=== PATIENT | male | born 1965 | race Caucasian/White ===

== ENCOUNTER 2022-06-19 13:36 | Inpatient (IN) | payer MEDICAID, SELFPAY ==
[2022-06-19] VITALS (7 sets, daily range): BP systolic 108–148; BP diastolic 70–92; PULSE 81–96; RESP 14–18; TEMP 36.4–36.7; O2SAT 96–97; BMI 24.3
--- NOTE | 2022-06-19 14:12 | XRR_ITS ---
PROCEDURE INFORMATION: Exam: XR Right Foot Exam date and time: 06/19/2022 2:39 PM Age: 57 years old Clinical indication: Swelling, leg or foot; Additional info: Wound in between R 1 and 2 toes, soft tissue film rule out foreign body in between first and TECHNIQUE: Imaging protocol: Radiologic exam of the Right foot. Views: 3 or more views. COMPARISON: No relevant prior studies available. FINDINGS: Bones/joints: Osseous structures are intact. Negative for fracture. Joint spaces of the foot are preserved. DJD with marginal osteophyte formation seen at the tibiotalar joint space. Soft tissues: No evidence of radiopaque foreign body. XR/XR foot RT min 3V* [id number] IMPRESSION: No evidence of radiopaque foreign body.
--- NOTE | 2022-06-19 14:15 | W.ED.EXTPRO ---
HPI - Extremity Problem General: Chief complaint: Extremity Injury, Lower Stated complaint: right foot injury Time Seen by Provider: 06/19/22 14:01 Source: patient Mode of arrival: ambulatory Limitations: no limitations History of Present Illness: See nursing assessment. Patient with complaints of increasing swelling and redness to right foot. Patient states he shaved the callus off his right foot 3 weeks ago. He states he then stepped on a thorn 1 week ago between the right first and second toes. He has noticed increased swelling since he stepped on a thorn. He is also had purulent discharge in between his right first and second toes. 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 Denies being diabetic. States he had some leftover amoxicillin started at 3 days ago at 500 mg every 6 hours. Takes no other routine medications. Denies any allergies to medications. Patient states swelling and discomfort radiate to right calf. Associated symptoms: Deny chest pain or fever(s) Review of Systems Const: Reports: night sweats; Denies: fever(s) or chills Eyes: Denies: change in vision ENMT: Denies: throat pain Card: Denies: chest pain or palpitations Resp: Denies: dyspnea or wheezing GI: Denies: abdominal pain, nausea or vomiting : Denies: flank pain Musc: Reports: other (Moderate soft tissue swelling to the right foot. Mild discomfort to r calf); Denies: neck pain or back pain Neuro: Reports: other (Patient states he has neuropathy in both feet and cannot feel anything.); Denies: headache(s) Psych: Denies: anxiety Valdo/Lymph: Denies: enlarged lymph nodes PFS ED PFSH: Medical History Arsenic poisoning Peripheral neuropathy Surgical History No significant past surgical history Family History Other Diabetes Social History Smoking and tobacco status: never smoked Alcohol intake: current Alcohol intake frequency: few times a week Substance/Drug Use: never Lives independently: Yes Marital status: Single Current occupational status: previously employed Previous occupational history: Laid off, is supposed to start work again next year. 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 Physical Exam Const: COMMON NORMALS: no acute distress, patient oriented x3, no limitations and well nourished GENERAL APPEARANCE: cooperative HENMT: COMMON NORMALS: normocephalic and atraumatic HEAD & SCALP: normocephalic and atraumatic FACE & SINUS: normal facial exam Eye: COMMON NORMALS: EOMs intact bilaterally Neck/C-Spine: COMMON NORMALS: full ROM, no lymphadenopathy, supple and no meningeal signs GENERAL: Yes normal visual inspection Lymph: LYMPHATIC: no lymphadenopathy noted Chest: COMMONS NORMALS: normal inspection of the chest and normal palpation of entire chest wall CHEST: No Ecchymosis present and No rash Resp: COMMON NORMALS: normal respiratory effort, No retractions and clear to auscultation bilaterally EFFORT & INSPECTION: No respiratory distress AUSCULTATION: clear to auscultation bilaterally Cardio: COMMON NORMALS: regular rate, regular rhythm and Peripheral pulses 2+ throughout JUGULAR VENOUS DISTENTION: no JVD RATE: regular rate RHYTHM: regular rhythm PERIPHERAL PULSES: Peripheral pulses 2+ throughout GI: COMMON NORMALS: Normal to inspection, nondistended, normoactive bowel sounds present and non-tender : COMMON NORMALS: Yes no CVA tenderness BLADDER/KIDNEY EXAM: Yes no CVA tenderness Back/Pelvis: COMMON NORMALS: no CVA tenderness Extremity: COMMON NORMALS: full ROM and capillary refill normal OTHER: Patient has moderate soft tissue swelling to the right foot. Patient has purulent drainage originating from between the right great and second toes. No obvious foreign body palpated. Patient has normal posterior tibial and dorsalis pedis pulses. Cap refill normal. Patient has mild ecchymosis of the right great toe. Mild increased warmth of the right foot and mild erythema of the distal half of the right foot. Trace pain in the right calf. No soft tissue swelling to the right lower leg. Neuro: COMMON NORMALS: patient oriented x3, CN's II-XII intact bilaterally and no focal motor deficits MENINGEAL SIGNS: Yes no meningeal signs OTHER: Patient has no sensation of pain to the right foot due to his neuropathy. Motor is intact. Psych: COMMON NORMALS: mental status grossly normal and Normal thought process present THOUGHT PROCESS: Normal thought process present Course Vital Signs: Vital signs: Vital Signs Temperature 97.6 F 06/19/22 13:56 Pulse Rate 96 06/19/22 13:56 Respiratory Rate 14 06/19/22 13:56 Blood Pressure 132/76 06/19/22 15:20 Pulse Oximetry 96 06/19/22 15:20 Oxygen Delivery Me thod 06/19/22 15:20 MDM - Extremity (Nontraumatic) Medical Decision Making Possible retained foreign body. Cellulitis to right foot. Possible abscess to right foot. Possible osteomyelitis. 1530: Case discussed with hospitalist Dr. Genao. He will place patient in observation. He asked that CT scan of the right foot be done. He also asked that lactic acid be added to orders. No abscess by CT scan. Lab Data 06/19/22 14:21 06/19/22 14:21 Radiology Impressions Foot X-Ray 06/19/22 14:12 IMPRESSION: No evidence of radiopaque foreign body. Foot CT 06/19/22 15:31 IMPRESSION: Subcutaneous edema noted at the wound site with no definable abscess or radiopaque foreign body. Laboratory Results WBC 15.3 10^3/uL (4.0-10.0) H 06/19/22 14:21 RBC 5.21 10^6/uL (4.1-5.3) 06/19/22 14:21 Hgb 15.4 g/dL (11.7-16.6) 06/19/22 14:21 Hct 46.2 % (42.0-52.0) 06/19/22 14:21 MCV 88.7 fl (80-94) 06/19/22 14:21 MCH 29.6 pg (28.0-34.0) 06/19/22 14:21 MCHC 33.3 g/dL (30.0-36.0) 06/19/22 14:21 RDW 11.7 % (12.1-15.1) L 06/19/22 14:21 Plt Count 360 10^3/cmm (130-400) 06/19/22 14:21 MPV 9.9 fL (7.4-10.4) 06/19/22 14: Neut % (Auto) 82.2 % 06/19/22 14:21 Lymph % (Auto) 8.6 % 06/19/22 14:21 [place] % (Auto) 8.0 % 06/19/22 14:21 Eos % (Auto) 0.4 % 06/19/22 14:21 Baso % (Auto) 0.3 % 06/19/22 14:21 Neut # (Auto) 12.57 10^3/uL (1.8-7.7) H 06/19/22 14:21 Lymph # (Auto) 1.3 10^3/uL (0.8-4.8) 06/19/22 14:21 [place] # (Auto) 1.2 10^3/uL (0.2-0.9) H 06/19/22 14:21 Eos # (Auto) 0.1 10^3/uL (0.0-0.8) 06/19/22 14:21 Baso # (Auto) 0.0 10^3/uL (0.0-0.1) 06/19/22 14:21 Nucleated RBC % (auto) 0 % 06/19/22 14: Nucleated RBCs # 0.0 /100WBC 06/19/22 14:21 Sodium 130 mmol/L (136-145) L 06/19/22 14:21 Potassium 4.8 mmol/L (3.5-5.1) 06/19/22 14:21 Chloride 89 mmol/L (98-107) L 06/19/22 14:21 Carbon Dioxide 24 mmol/L (22-29) 06/19/22 14:21 Anion Gap 21.8 (5-19) H 06/19/22 14:21 BUN 19 mg/dL (6-20) 06/19/22 14:21 Creatinine 1.0 mg/dL (0.7-1.2) 06/19/22 14:21 GFR Calculation 76.7 mL/min (90-130) L 06/19/22 14:21 Glucose 366 mg/dL (65-115) H 06/19/22 14:21 Estimat Average Glucose 226 06/19/22 14:21 Hemoglobin A1c 9.5 % (4.0-6.0) H 06/19/22 14:21 Calculated Osmolality 287 mOsm/kg (285-295) 06/19/22 14:21 Lactic Acid 2.4 mmol/L (0.5-2.2) H 06/19/22 14:21 Calcium 9.8 mg/dL (8.5-10.5) 06/19/22 14:21 Imaging Data Xray Ortho: My impression: No fracture or foreign body seen. There does appear to be mild degradation of the bone at the proximal end of the proximal phalange, and distal portion of the first metatarsal bone. This could be chronic versus acute osteomyelitis. Radiologist's impression: PROCEDURE INFORMATION: Exam: XR Right Foot Exam date and time: 06/19/2022 2:39 PM Age: 57 years old Clinical indication: Swelling, leg or foot; Additional info: Wound in between R 1 and 2 toes, soft tissue film rule out foreign body in between first and TECHNIQUE: Imaging protocol: Radiologic exam of the Right foot. Views: 3 or more views. COMPARISON: No relevant prior studies available. FINDINGS: Bones/joints: Osseous structures are intact. Negative for fracture. Joint spaces of the foot are preserved. DJD with marginal osteophyte formation seen at the tibiotalar joint space. Soft tissues: No evidence of radiopaque foreign body. XR/XR foot RT min 3V* [id number] IMPRESSION: No evidence of radiopaque foreign body. ? Dictated By: Olu Hurt DO Signed By: Olu Hurt DO Signed Date/Time: 06/19/[address]: Radiologist's impression: PROCEDURE INFORMATION: Exam: CT Right Lower Extremity With Contrast, Foot Exam date and time: 06/19/2022 4:09 PM Age: 57 years old Clinical indication: Injury or trauma; Other: Thorn in his right foot, 1st and 2nd toe infected and pain. Puncture and swelling (edema); Foreign body involvement not specified; Additional info: Infection right foot, rule out abscess TECHNIQUE: Imaging protocol: CT of the Right lower extremity with intravenous contrast was performed. Exam focused on the foot. Radiation optimization: All CT scans at this facility use at least one of these dose optimization techniques: automated exposure control; mA and/or kV adjustment per patient size (includes targeted exams where dose is matched to clinical indication); or iterative reconstruction. Contrast material: OMNI 350; Contrast volume: 100 ml; Contrast route: INTRAVENOUS (IV);? COMPARISON: CR (LOW EXM, ) 06/19/2022 2:39 PM RADIATION DOSE METRICS: Total DLP (mGy-cm): 150.88 FINDINGS: Bones/joints: No acute fracture or dislocation. No irregular osseous erosions. Soft tissues: Subcutaneous edema noted in the 1st and 2nd digits as well as the plantar aspect of the forefoot adjacent to the 1st and 2nd digits. No definable walled-off fluid collection. No subcutaneous emphysema. No radiopaque foreign body. CT/CT foot RT w con [id number] IMPRESSION: Subcutaneous edema noted at the wound site with no definable abscess or radiopaque foreign body. ? Dictated By: Olu Hurt DO Signed By: Olu Hurt DO Signed Date/Time: 06/19/22 1648 Discharge Plan Discharge Patient Disposition: Placed in Observation Admit Provider: Andrew Genao Clinical Impression: Cellulitis of foot, right Type 2 diabetes mellitus Qualifiers: Diabetes mellitus termite control service representative insulin use: without termite control service representative use Diabetes mellitus complication status: with hyperglycemia Qualified Code(s): E11.65 - Type 2 diabetes mellitus with hyperglycemia Coding Level of Care Code ED Dietary Aide Cook for [facility] Fwd History Comprehensive Exam Comprehensive Medical Decision Making Moderate Complexity
[2022-06-19 14:39] LABS: Basophils % 0.3 %; Eosinophils # 0.1 10^3/uL (0.0-0.8); Eosinophils % 0.4 %; Hematocrit 46.2 % (42.0-52.0); Hemoglobin 15.4 g/dL (11.7-16.6); Lymphocytes # 1.3 10^3/uL (0.8-4.8); Lymphocytes % 8.6 %; Mean Corpuscular HGB Conc 33.3 g/dL (30.0-36.0); Mean Corpuscular Hemoglobin 29.6 pg (28.0-34.0); Mean Corpuscular Volume 88.7 fl (80-94); Mean Platelet Volume 9.9 fL (7.4-10.4); Monocytes # 1.2 10^3/uL (0.2-0.9); Neutrophils # 12.57 10^3/uL (1.8-7.7); Neutrophils % 82.2 %; Nucleated Red Blood Cells % 0 %; Platelet Count 360 10^3/cmm (130-400); Red Blood Count 5.21 10^6/uL (4.1-5.3); Red Cell Distribution Width 11.7 % (12.1-15.1); White Blood Count 15.3 10^3/uL (4.0-10.0)
[2022-06-19 14:57] LABS: Anion Gap 21.8 (5-19); Blood Urea Nitrogen 19 mg/dL (6-20); Calcium 9.8 mg/dL (8.5-10.5); Carbon Dioxide 24 mmol/L (22-29); Chloride 89 mmol/L (98-107); Glomerular Filtration Rate 76.7 mL/min (90-130); Glucose 366 mg/dL (65-115); Osmolality Calculated 287 mOsm/kg (285-295); Potassium 4.8 mmol/L (3.5-5.1); Sodium 130 mmol/L (136-145)
[2022-06-19] MEDS: cefTRIAXone 2,000 MG in sodium chloride 0.9% (plus) 50 ML 100 MG IV (14:59)
[2022-06-19] MEDS: vancomycin 1,500 MG/300 ML PIGGYBACK 200 MG IV (15:26)
--- NOTE | 2022-06-19 15:31 | CTR_ITS ---
PROCEDURE INFORMATION: Exam: CT Right Lower Extremity With Contrast, Foot Exam date and time: 06/19/2022 4:09 PM Age: 57 years old Clinical indication: Injury or trauma; Other: Thorn in his right foot, 1st and 2nd toe infected and pain. Puncture and swelling (edema); Foreign body involvement not specified; Additional info: Infection right foot, rule out abscess TECHNIQUE: Imaging protocol: CT of the Right lower extremity with intravenous contrast was performed. Exam focused on the foot. Radiation optimization: All CT scans at this facility use at least one of these dose optimization techniques: automated exposure control; mA and/or kV adjustment per patient size (includes targeted exams where dose is matched to clinical indication); or iterative reconstruction. Contrast material: OMNI 350; Contrast volume: 100 ml; Contrast route: INTRAVENOUS (IV); COMPARISON: CR (LOW EXM, ) 06/19/2022 2:39 PM RADIATION DOSE METRICS: Total DLP (mGy-cm): 150.88 FINDINGS: Bones/joints: No acute fracture or dislocation. No irregular osseous erosions. Soft tissues: Subcutaneous edema noted in the 1st and 2nd digits as well as the plantar aspect of the forefoot adjacent to the 1st and 2nd digits. No definable walled-off fluid collection. No subcutaneous emphysema. No radiopaque foreign body. CT/CT foot RT w con [id number] IMPRESSION: Subcutaneous edema noted at the wound site with no definable abscess or radiopaque foreign body.
[2022-06-19 16:00] LABS: Lactic Sepsis W/Reflex 2.4 mmol/L (0.5-2.2)
--- NOTE | 2022-06-19 16:09 | P.HP_ITS ---
Providers/Chief Complaint Chief Complaint: right foot injury History of Present Illness Pleasant 57-year-old gentleman with history of peripheral neuropathy persistent after arsenic poisoning, developed a callus on the dorsal aspect of his right foot extending from the hallux proximally, which she had shaved off. He then about a week ago stepped on a thorn on proximal plantar/lateral aspect of his right great toe which he removed. Then about 4-5 days ago his toe and then proximal foot started swelling, having redness, and today he also started having bloody drainage. He took amoxicillin that he had had left from the past for 3 days without improvement. The foot is tender. He had night sweats. In ER he is tachycardic 96, afebrile, with leukocytosis 15.3. Lactic acid 2.4. Foot x-ray without fracture, foreign body or advanced bone destruction. Blood glucose is noted 366. Discussed with him he does not have history of diabetes, but states that he does eat quite a bit of sweets, including wart of honey in a week. Review of Systems Const: Reports: night sweats Eyes: Denies: change in vision, eye discomfort or eye redness ENMT: Denies: throat pain, oral sores or ear or mastoid pain Card: Denies: chest pain, edema, pre-syncope or dyspnea on exertion Resp: Denies: dyspnea, productive cough, change in phlegm color or hemoptysis GI: Denies: abdominal pain, nausea, vomiting, diarrhea, constipation, hematochezia or melena : Denies: flank pain, difficulty urinating, urinary frequency or hematuria Musc: Reports: extremity pain and extremity swelling; Denies: back pain, joint swelling or joint redness Skin/Breast: Reports: erythema, new lesions and changing lesions Neuro: Denies: headache(s), numbness in extremities, weakness in extremities, dizziness, confusion or seizure-like activity Endo: Denies: polyuria or polydipsia Valdo/Lymph: Denies: easy bleeding or tender lymph nodes All/Imm: Denies: urticaria or tongue swelling Medications/Allergies Home Medications Medication Instructions Recorded Confirmed Last Taken Type No Known Home Medications 06/19/22 06/19/22 Unknown History Allergies Allergy/AdvReac Type Severity Reaction Status Date / Time No Known Allergies Allergy Verified 06/19/22 13:56 PFSH Acute PFSH: Medical History Arsenic poisoning Peripheral neuropathy Surgical History No significant past surgical history Family History Other Diabetes Social History Smoking and tobacco status: never smoked Alcohol intake: current Alcohol intake frequency: few times a week Substance/Drug Use: never Lives independently: Yes Marital status: Single Current occupational status: previously employed Previous occupational history: Laid off, is supposed to start work again next year. Vitals/I&O/Wt Last Vital Signs Temp 97.6 F 06/19/22 13:56 Pulse 96 06/19/22 13:56 Resp 14 06/19/22 13:56 BP 132/76 06/19/22 15:20 Pulse Ox 96 06/19/22 15:20 O2 Del Method 06/19/22 15:20 06/19/22 06/19/22 06/19/22 06:59 14:59 22:59 Intake Total 50 / 50 Balance 50 / 50 Weight last 48 hrs Weight 72.575 kg Physical Exam Const: COMMON NORMALS: patient oriented x3 and alert GENERAL APPEARANCE: cooperative ORIENTATION/CONSCIOUSNESS: Yes awake HENMT: COMMON NORMALS: oropharynx normal Neck/C-Spine: COMMON NORMALS: no JVD Resp: COMMON NORMALS: normal respiratory effort and clear to auscultation bilaterally AUSCULTATION: clear to auscultation bilaterally Cardio: COMMON NORMALS: no JVD, regular rhythm, S1 normal heart sound present, S2 normal heart sound present and No murmurs present (Cardio) RHYTHM: regular rhythm HEART SOUNDS: S1 normal heart sound present and S2 normal heart sound present GI: COMMON NORMALS: Normal to inspection, nondistended, normoactive bowel sounds present, Soft to palpation and non-tender PALPATION: Yes Soft to palpation Extremity: COMMON NORMALS: no joint enlargement and no pedal edema OTHER: Swelling right hallux, distal medial right foot, with maceration lateral right hallux, between the toes, fissure on plantar surface between first and second toes with some crusted blood, clear drainage currently. Neuro: COMMON NORMALS: patient oriented x3 and moves all extremities SENSORIUM/ORIENTATION: Yes alert Skin: COMMON NORMALS: no rashes or lesions noted GENERAL SKIN EXAM: no rashes or lesions noted Data 06/19/22 14:21 06/19/22 14:21 Micro: Microbiology 06/19/22 14:26 Blood Culture - Preliminary Blood SPECIMEN COLLECTED 06/19/22 14:21 Blood Culture - Preliminary Blood SPECIMEN COLLECTED A&P Assessment and plan (1) Soft tissue infection: Right hallux, proximal fourth, swelling, erythema, maceration, pain, currently clear drainage. No evidence of advanced bone destruction on x-ray. No fracture, no foreign body. He had taken amoxicillin for 3 days at home that he had left from the past, but without any improvement. Wound culture collected. CT fluid to assess for abscess. Cefepime, vancomycin. (2) Sepsis: With leukocytosis 15.3, sinus tachycardia 96. Source is soft tissue infection of right foot. Blood cultures collected. Continue to biotics as above. Lactic acidosis 2.4. No other endorgan dysfunction. (3) Hyperglycemia: Glucose 266. Family history of diabetes. Checking AC. Suspect diabetes. SSI insulin. Consistent carbohydrate diet. (4) Peripheral neuropathy: Chronic peripheral neuropathy after stent placement. Discussed with him to avoid ever walking barefoot. Protect his feet. Avoid soaking. Seek medical attention in case of any wounds. (5) Hyponatremia: Mild. Suspect secondary to sepsis. Reassess sodium. Liberalized sodium intake. Attestations Medical Necessity Statement*: Admission of over 2 midnights anticipated for assessment of management of soft tissue infection, sepsis in gentleman with undiagnosed diabetes, peripheral apathy, worsening symptoms of soft tissue i nfection despite taking amoxicillin. Coding Level of Care Code Acute Interactive Media Director for [facility] Diagnoses Soft tissue infection L08.9 Sepsis A41.9 Hyperglycemia R73.9 Peripheral neuropathy G62.9 Hyponatremia E87.1
[2022-06-19] MEDS: iohexol 350 mg/mL 500 mL Btl (per mL) IV (16:22)
[2022-06-19 16:40] LABS: Estmated Average Glucose 226; Hemoglobin A1C 9.5 % (4.0-6.0)
[2022-06-19 17:28] LABS: Reflex Lactate Order REFLEX LACTIC ORDERD
[2022-06-19 19:20] LABS: Lactic Acid level (Lactate) 1.4 mmol/L (0.5-2.2)
[2022-06-19] MEDS: heparin 5,000 unit/mL INJ 1 mL 5000 UNIT SUBCUT (19:37)
[2022-06-19] MEDS: cefepime 2,000 MG in sodium chloride 0.9% (plus) 50 ML 100 MG IV (19:38)
[2022-06-19] MEDS: acetaminophen 325 mg Tablet 650 MG PO (20:19)
[2022-06-19 20:47] LABS: Glucose Point of Care 343 mg/dL (70-110)
[2022-06-19] MEDS: insulin lispro 100 unit/1 mL SUBCUT (21:00)
[2022-06-20] VITALS (9 sets, daily range): BP systolic 119–152; BP diastolic 68–83; PULSE 76–90; RESP 16–19; TEMP 36.4–36.8; O2SAT 95–97
[2022-06-20] MEDS: vancomycin 1,000 MG in sodium chloride 0.9% 250 ML 250 MG IV ×2 (02:27→14:44)
[2022-06-20] MEDS: heparin 5,000 unit/mL INJ 1 mL 5000 UNIT SUBCUT ×2 (05:46→17:57)
[2022-06-20 06:05] LABS: Basophils # 0.1 10^3/uL (0.0-0.1); Basophils % 0.5 %; Eosinophils # 0.3 10^3/uL (0.0-0.8); Hematocrit 42.4 % (42.0-52.0); Lymphocytes # 1.7 10^3/uL (0.8-4.8); Lymphocytes % 12.8 %; Mean Corpuscular Hemoglobin 29.4 pg (28.0-34.0); Mean Corpuscular Volume 88.9 fl (80-94); Mean Platelet Volume 9.9 fL (7.4-10.4); Monocytes # 1.4 10^3/uL (0.2-0.9); Monocytes % 10.5 %; Neutrophils # 9.73 10^3/uL (1.8-7.7); Neutrophils % 73.5 %; Nucleated Red Blood Cells % 0 %; Platelet Count 306 10^3/cmm (130-400); Red Blood Count 4.77 10^6/uL (4.1-5.3); Red Cell Distribution Width 11.8 % (12.1-15.1); White Blood Count 13.2 10^3/uL (4.0-10.0)
[2022-06-20 06:29] LABS: Anion Gap 12.2 (5-19); Blood Urea Nitrogen 18 mg/dL (6-20); Calcium 9.1 mg/dL (8.5-10.5); Carbon Dioxide 27 mmol/L (22-29); Chloride 96 mmol/L (98-107); Glomerular Filtration Rate 99.3 mL/min (90-130); Glucose 285 mg/dL (65-115); Osmolality Calculated 284 mOsm/kg (285-295); Potassium 4.2 mmol/L (3.5-5.1); Sodium 131 mmol/L (136-145)
[2022-06-20 07:02] LABS: Glucose Point of Care 304 mg/dL (70-110)
[2022-06-20] MEDS: cefepime 2,000 MG in sodium chloride 0.9% (plus) 50 ML 100 MG IV ×2 (09:06→21:09)
[2022-06-20] MEDS: insulin lispro 100 unit/1 mL SUBCUT ×4 (09:06→21:57)
[2022-06-20 11:09] LABS: Glucose Point of Care 324 mg/dL (70-110)
[2022-06-20 17:41] LABS: Glucose Point of Care 266 mg/dL (70-110)
--- NOTE | 2022-06-20 20:54 | P.PN_ITS ---
Subjective Subjective: Today he is doing slightly better. Still swelling, tenderness in the right hallux, distal right foot. No other issues, no chest pain or trouble breathing. No abdominal pain. Vitals/I&O/Wt Last Vital Signs Temp 97.5 F L 06/20/22 20:00 Pulse 81 06/20/22 20:00 Resp 19 H 06/20/22 20:00 BP 152/77 06/20/22 20:00 Pulse Ox 96 06/20/22 20:00 O2 Del Method 06/20/22 20:00 06/20/22 06/20/22 06/20/22 06:59 14:59 22:59 Intake Total 610 / 950 410 / 410 490 / 900 Balance 610 / 950 410 / 410 490 / 900 Weight last 48 hrs Weight 67.903 kg Weight 72.575 kg Physical Exam Const: COMMON NORMALS: patient oriented x3 and alert GENERAL APPEARANCE: cooperative ORIENTATION/CONSCIOUSNESS: Yes awake HENMT: COMMON NORMALS: oropharynx normal Neck/C-Spine: COMMON NORMALS: no JVD Resp: COMMON NORMALS: normal respiratory effort and clear to auscultation bilaterally AUSCULTATION: clear to auscultation bilaterally Cardio: COMMON NORMALS: no JVD, regular rhythm, S1 normal heart sound present, S2 normal heart sound present and No murmurs present (Cardio) RHYTHM: regular rhythm HEART SOUNDS: S1 normal heart sound present and S2 normal heart sound present GI: COMMON NORMALS: Normal to inspection, nondistended, normoactive bowel sounds present, Soft to palpation and non-tender PALPATION: Yes Soft to palpation Extremity: COMMON NORMALS: no joint enlargement and no pedal edema OTHER: Swelling right hallux, distal medial right foot, with maceration lateral right hallux, between the toes, fissure on plantar surface between first and second toes with some crusted blood, clear drainage currently. Neuro: COMMON NORMALS: patient oriented x3 and moves all extremities SENSORIUM/ORIENTATION: Yes alert Skin: COMMON NORMALS: no rashes or lesions noted GENERAL SKIN EXAM: no rashes or lesions noted Data 06/20/22 05:50 06/20/22 05:50 Micro: Microbiology 06/19/22 15:08 Wound Culture - Preliminary Toe - #1 Coag positive Staphylococcus 06/19/22 14:26 Blood Culture - Preliminary Blood NEGATIVE TO DATE 06/19/22 14:21 Blood Culture - Preliminary Blood NEGATIVE TO DATE A&P Assessment and plan (1) Soft tissue infection: Slight decrease in erythema, still persistent swelling, maceration lateral proximal aspect of the right hallux. May benefit from podiatry assessment in case maceration persists. Right hallux, proximal fourth, swelling, erythema, maceration, pain, currently clear drainage. No evidence of advanced bone destruction on x-ray. No fracture, no foreign body. He had taken amoxicillin for 3 days at home that he had left from the past, but without any improvement. Wound culture collected. So far coag positive staph on gram stain. CT fluid to assess for abscess. Continue cefepime, vancomycin. (2) Sepsis: Sepsis with improvement, improving leukocytosis, resolved tachycardia. Source is soft tissue infection of right foot. Blood cultures pending. Continue antibiotics as above. Lactic acidosis 2.4. No other endorgan dysfunction. (3) Hyperglycemia: Still hyperglycemia. New diagnosis diabetes, A1c 9.5. Continue sliding scale insulin, add Lantus. Family history of diabetes. SSI insulin. Consistent carbohydrate diet. (4) Peripheral neuropathy: Chronic peripheral neuropathy after stent placement. Discussed with him to avoid ever walking barefoot. Protect his feet. Avoid soaking. Seek medical attention in case of any wounds. (5) Hyponatremia: Mild. Suspect secondary to sepsis. Reassess sodium. Liberalized sodium intake. Attestations Medical Necessity Statement*: Continue admission for assessment management of including chest, diabetic foot infection with new diagnosis of diabetes which is untreated. Coding Level of Care Code Acute Vinyl Top Installer for [facility] Diagnoses Soft tissue infection L08.9 Sepsis A41.9 Hyperglycemia R73.9 Peripheral neuropathy G62.9 Hyponatremia E87.1
[2022-06-20] MEDS: acetaminophen 325 mg Tablet 650 MG PO (21:09)
[2022-06-20 22:00] LABS: Glucose Point of Care 316 mg/dL (70-110)
[2022-06-21] VITALS (9 sets, daily range): BP systolic 117–165; BP diastolic 65–87; PULSE 73–81; RESP 16–19; TEMP 36.4–36.8; O2SAT 95–99
[2022-06-21 02:18] LABS: Basophils # 0.1 10^3/uL (0.0-0.1); Basophils % 0.4 %; Eosinophils # 0.2 10^3/uL (0.0-0.8); Eosinophils % 1.8 %; Hematocrit 41.6 % (42.0-52.0); Hemoglobin 13.6 g/dL (11.7-16.6); Lymphocytes % 14.9 %; Mean Corpuscular HGB Conc 32.7 g/dL (30.0-36.0); Mean Corpuscular Hemoglobin 28.9 pg (28.0-34.0); Mean Corpuscular Volume 88.5 fl (80-94); Mean Platelet Volume 9.8 fL (7.4-10.4); Monocytes # 1.4 10^3/uL (0.2-0.9); Monocytes % 10.5 %; Neutrophils # 9.81 10^3/uL (1.8-7.7); Neutrophils % 71.7 %; Nucleated Red Blood Cells % 0 %; Platelet Count 347 10^3/cmm (130-400); Red Cell Distribution Width 11.8 % (12.1-15.1); White Blood Count 13.7 10^3/uL (4.0-10.0)
[2022-06-21 02:53] LABS: Anion Gap 13.2 (5-19); Blood Urea Nitrogen 15 mg/dL (6-20); Calcium 9.3 mg/dL (8.5-10.5); Carbon Dioxide 28 mmol/L (22-29); Chloride 98 mmol/L (98-107); Glomerular Filtration Rate 86.7 mL/min (90-130); Glucose 207 mg/dL (65-115); Osmolality Calculated 287 mOsm/kg (285-295); Potassium 4.2 mmol/L (3.5-5.1); Sodium 135 mmol/L (136-145)
[2022-06-21 02:55] LABS: Vancomycin Trough 10.3 ug/mL (10-15)
[2022-06-21] MEDS: vancomycin 1,000 MG in sodium chloride 0.9% 250 ML 250 MG IV ×2 (03:56→15:04)
[2022-06-21] MEDS: heparin 5,000 unit/mL INJ 1 mL 5000 UNIT SUBCUT ×2 (06:11→17:53)
[2022-06-21 06:22] LABS: Glucose Point of Care 278 mg/dL (70-110)
[2022-06-21 07:29] LABS: Bacillus cereus group Not Detected (NOT DETECT); Bacillus subtillis group Not Detected (NOT DETECT); Corynebacterium Not Detected (NOT DETECT); Cutibacterium acnes (P.acnes) Not Detected (NOT DETECT); Enterococcus Not Detected (NOT DETECT); Enterococcus faecalis Not Detected (NOT DETECT); Enterococcus faecium Not Detected (NOT DETECT); Lactobacillus species Not Detected (NOT DETECT); Listeria Not Detected (NOT DETECT); Listeria monocytogenes Not Detected (NOT DETECT); Micrococcus Not Detected (NOT DETECT); Pan Candida Not Detected (NOT DETECT); Pan Gram-Negative Not Detected (NOT DETECT); Staphylococcus epidermidis Not Detected (NOT DETECT); Staphylococcus lugdunensis Not Detected (NOT DETECT); Staphylococcus species Detected (NOT DETECT); Streptococcus agalactiae Not Detected (NOT DETECT); Streptococcus anginosus group Not Detected (NOT DETECT); Streptococcus pneumoniae Not Detected (NOT DETECT); Streptococcus pyogenes Not Detected (NOT DETECT); Streptococcus species Not Detected (NOT DETECT); mecA Not Detected (NOT DETECT); mecC Not Detected (NOT DETECT)
[2022-06-21] MEDS: insulin lispro 100 unit/1 mL SUBCUT ×3 (08:30→20:10)
[2022-06-21] MEDS: cefepime 2,000 MG in sodium chloride 0.9% (plus) 50 ML 100 MG IV (08:37)
[2022-06-21] MEDS: acetaminophen 325 mg Tablet 650 MG PO ×2 (10:28→20:15)
[2022-06-21 11:40] LABS: Glucose Point of Care 283 mg/dL (70-110)
[2022-06-21 14:51] LABS: Procalcitonin 0.27 ng/mL (0-0.5)
[2022-06-21 15:01] LABS: Thyroid Stimulating Hormone 0.38 uIU/mL (0.27-4.20); Vitamin B12 389 pg/mL (232-1245)
[2022-06-21 15:13] LABS: Iron 29 ug/dL (59-158); Percent Saturation 16.1 % (20-50); Total Iron Binding Capacity 180 mcg/dl; Unsaturated Iron Binding 151 ug/dL (112-347)
--- NOTE | 2022-06-21 15:55 | PM.CONSULT ---
Providers/Reason For Consult Consulting Physician/Specialty*: Damian Lincoln D.P.M. Reason for Consult*: Diabetic foot infection, right Attending Physician: Jamari Morrison MD History of Present Illness History of Present Illness Aaron Salas is a 57 year old newly diagnosed diabetic male presented to the emergency department for pain, redness and swelling of the right foot. He reports a hemorrhagic callus that began approximately 3 weeks ago that worsened after a puncture wound from a foreign body, states he stepped on a thorn approximately a week ago and experienced a worsening of symptoms. He had amoxicillin on hand and took 500 mg 4 times a day and then presented to the emergency department once things continue to worsen. Leukocytosis on admission. Patient has been on empiric IV antibiotics, he reports improvement in pain during his hospital stay. Patient denies any subjective nausea, vomiting, fever, chills, shortness of breath or chest pain. Review of Systems General: Reports: 10 or more systems reviewed and unremarkable except in HPI and below Const: Denies: fever(s) or chills Eyes: Denies: change in vision Card: Denies: chest pain or palpitations Resp: Denies: dyspnea or productive cough GI: Denies: abdominal pain, nausea or vomiting : Denies: flank pain Musc: Reports: extremity swelling, joint stiffness and deformity Skin/Breast: Reports: erythema, sores, changes in skin color, dry skin, nail changes and change in hair Neuro: Reports: numbness in extremities, sensory changes and difficulty walking Psych: Denies: suicidal ideation Endo: Denies: change in body appearance Valdo/Lymph: Denies: tender lymph nodes Medications/Allergies Home Medications Medication Instructions Recorded Confirmed Last Taken Type No Known Home Medications 06/19/22 06/19/22 Unknown History Allergies Allergy/AdvReac Type Severity Reaction Status Date / Time No Known Allergies Allergy Verified 06/19/22 13:56 Current Medications Generic Name Dose Route Start Last Admin Trade Name Freq PRN Reason Stop Dose Admin Acetaminophen 650 mg 06/19/22 15:32 06/21/22 10:28 Acetaminophen 325 Mg Tablet PO 650 mg Q6H PRN Administration Mild/Mod Pain Or Temp >/= 101 Heparin Sodium (Porcine) 5,000 unit 06/19/22 18:31 06/21/22 06:11 Heparin 5,000 Unit/Ml Inj 1 Ml SUBCUT 5,000 unit Q12H RONNY Administration Vancomycin HCl 1,000 mg/ 250 mls @ 250 mls/hr 06/20/22 03:00 06/21/22 15:04 Sodium Chloride IV 250 mls/hr Q12H RONNY Administration Protocol Insulin Human Lispro 0 unit 06/19/22 18:31 06/21/22 12:12 Insulin Lispro 100 Unit/1 Ml SUBCUT 8 unit WM&BEDTIME RONNY Administration Protocol PFSH Acute PFSH: Medical History Arsenic poisoning Peripheral neuropathy Surgical History No significant past surgical history Family History Other Diabetes Social History Smoking and tobacco status: never smoked Alcohol intake: current Alcohol intake frequency: few times a week Substance/Drug Use: never Lives independently: Yes Marital status: Single Current occupational status: previously employed Previous occupational history: Laid off, is supposed to start work again next year. Vitals/I&O/Wt Last Vital Signs Temp 98.0 F 06/21/22 15:39 Pulse 77 06/21/22 15:39 Resp 16 06/21/22 15:39 BP 145/73 06/21/22 15:39 Pulse Ox 98 06/21/22 15:39 O2 Del Method 06/21/22 15:39 06/21/22 06/21/22 06/21/22 06:59 14:59 22:59 Intake Total 550 / 1500 770 / 770 Balance 550 / 1500 770 / 770 Weight last 48 hrs Weight 150 lb 3 oz Weight 149 lb 11.2 oz Physical Exam Narrative: GENERAL: Patient is alert and oriented ?3 and in no acute distress. The following is a focused bilateral lower extremity exam. VASCULAR: Dorsalis pedis palpable +2 left and right foot. Posterior tibial arteries palpable +2. Capillary refill time less than 3 seconds to the distal hallux bilaterally. Calf is supple and nontender proximally and distally. Pedal hair growth present. No edema to the lower extremities. NEUROLOGICAL: Protective sensation intact 0/10 sites, tested with [place] [employer] monofilament to bilateral feet. DERMATOLOGICAL: Punctate wound to the plantar medial aspect of the right hallux near the level of the interphalangeal joint with purulent drainage expressed, maceration at the right first webspace and desquamation around the base of the right great toe, there is localized erythema to the right great toe. There is no proximal lymphangitic streaking. Wound at the medial aspect of the right great toe measures 2 mm x 3 mm x 4 mm. Wound does not probe to bone at the right great toe. No other wounds appreciated to the left or right lower extremity. MUSCULOSKELETAL: Tenderness palpation at the right great toe. Able to dorsiflex and plantarflex right great toe. Muscle strength is 5 out of 5 in all 3 cardinal planes to the bilateral foot and ankle. No crepitus with palpation of soft tissue to the right foot. Feet Left: 1. Kapoor grade 3 ulceration right hallux Data 06/21/22 01:54 06/21/22 01:54 Micro: Microbiology 06/19/22 15:08 Wound Culture - Final Toe - #1 Staphylococcus aureus 06/19/22 14:21 Blood Culture - Preliminary Blood Staphylococcus aureus 06/19/22 14:26 Blood Culture - Preliminary Blood NEGATIVE TO DATE Other data: MR/MR foot RT wo/w con [id number] IMPRESSION: 1. No obvious MR evidence of osteomyelitis. 2. Soft tissue abnormalities as described above. ? Dictated By: Hima Pandya MD Signed By: Hima Pandya MD Signed Date/Time: 06/21/221803 A&P Assessment and plan (1) Diabetic peripheral neuropathy associated with type 2 diabetes mellitus: (2) Staphylococcus aureus bacteremia: (3) Sepsis: (4) Chronic ulcer of great toe of right foot with necrosis of muscle: Ulceration to the plantar medial aspect of the right hallux was sharply and excisionally debrided down to and including myofascial layer utilizing a disposable sterile dermal curette. Purulent drainage encountered and fibrosing and devitalized tissue down to deep fascia. Hemostasis was achieved via manual pressure. Postdebridement wound measurements 4 mm x 4 mm x 3 mm with improved appearance. Patient experienced some discomfort during debridement, denied any pain or discomfort postdebridement. Dressed with silver alginate, 4 x 4 gauze, Charito and tape. Plan 57-year-old diabetic male admitted to hospital service with right diabetic foot infection, sepsis on admission, bacteremia secondary to staph varus, receiving empiric IV antibiotics. X-ray, CT scan and MRI negative for acute osteomyelitis. Performed excisional bedside debridement as above Dressing change with silver alginate twice daily Patient advised to avoid getting his right foot wet when bathing Offloading with cam boot to the right lower extremity Able to perform debridement bedside, no plans for surgical intervention during this hospitalization Recommend oral antibiotics on discharge per hospitalist, with webspace involvement would consider covering for anaerobes for at least 7 days in addition to MSSA coverage Recommend wound care clinic referral for outpatient follow-up at [facility] wound care moving forward Podiatry will follow while inpatient. 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
--- NOTE | 2022-06-21 16:08 | MRR_ITS ---
PROCEDURE INFORMATION: Exam: MR Right Lower Extremity Without and With Contrast; Forefoot Exam date and time: 06/21/2022 4:51 PM Age: 57 years old Clinical indication: Pain; Foot; Right; Additional info: Great toe infection TECHNIQUE: Imaging protocol: MR of the Right foot without and with contrast. Exam focused on the forefoot. Contrast material: MULTIHANCE; Contrast volume: 15 ml; Contrast route: INTRAVENOUS (IV); COMPARISON: CT foot RT w con [id number] 06/19/2022 4:09 PM FINDINGS: Bones and cartilage: No suspicious bone marrow edema or loss of T1 weighted marrow signal is seen to suggest definite MR evidence of acute osteomyelitis. Small subchondral cysts are noted around the 1st MTP joint suggesting degenerative arthritis. Multiple routine sequences were obtained including the mid/forefoot region. The hindfoot/ankle region is not included on this exam. Joint spaces: No significant joint effusion. LIGAMENTS: Collateral ligaments of digits: Unremarkable. No evidence of tear. TENDONS: Flexor tendons of foot: Unremarkable. No evidence of tear. Extensor tendons of foot: Unremarkable. No evidence of tear. Soft tissues: Diffuse area of subcutaneous soft tissue T2 hyperintensity is noted at the plantar aspect of the 1st through 4th toes extending into the 1st webspace, mostly without defined margin on T2 weighted images suggesting edema/phlegmonous tissue. Partially enhancing rim is noted at the plantar aspect of the 1st toe suggesting phlegmonous tissue/organizing soft tissue abscess, measuring about 26 mm transverse, 6 mm in thickness and 29 mm in length. An area of skin irregularity is noted in the medial plantar aspect of the 1st toe which may be related to penetrating injury or soft tissue ulcer. A tiny hypointense focus of susceptibility is noted medial to the 1st proximal phalanx, short axis series 601, image 38, long axis series 41, image 13 and sagittal image 3 which may represent a focus of soft tissue air or other soft tissue foreign body. Clinical correlation is needed. No radiopaque soft tissue foreign body is noted on the recent CT exam in this region. MR/MR foot RT wo/w con [id number] IMPRESSION: 1. No obvious MR evidence of osteomyelitis. 2. Soft tissue abnormalities as described above.
--- NOTE | 2022-06-21 16:52 | P.PN_ITS ---
Subjective Subjective: Hospital course, labs appreciated. On examination patient lying comfortably in bed. States feeling a lot better now. Able to stretch his foot without any pain. Has remained hemodynamically stable and afebrile. Denies any nausea, vomiting, headache. Vitals/I&O/Wt Last Vital Signs Temp 98.0 F 06/21/22 15:39 Pulse 77 06/21/22 15:39 Resp 16 06/21/22 15:39 BP 145/73 06/21/22 15:39 Pulse Ox 98 06/21/22 15:39 O2 Del Method 06/21/22 15:39 06/21/22 06/21/22 06/21/22 06:59 14:59 22:59 Intake Total 550 / 1500 770 / 770 250 / 1020 Balance 550 / 1500 770 / 770 250 / 1020 Weight last 48 hrs Weight 68.124 kg Weight 67.903 kg Physical Exam Const: COMMON NORMALS: patient oriented x3 and alert GENERAL APPEARANCE: cooperative ORIENTATION/CONSCIOUSNESS: Yes awake HENMT: COMMON NORMALS: oropharynx normal Neck/C-Spine: COMMON NORMALS: no JVD Resp: COMMON NORMALS: normal respiratory effort and clear to auscultation bilaterally AUSCULTATION: clear to auscultation bilaterally Cardio: COMMON NORMALS: no JVD, regular rhythm, S1 normal heart sound present, S2 normal heart sound present and No murmurs present (Cardio) RHYTHM: regular rhythm HEART SOUNDS: S1 normal heart sound present and S2 normal heart sound present GI: COMMON NORMALS: Normal to inspection, nondistended, normoactive bowel sounds present, Soft to palpation and non-tender PALPATION: Yes Soft to palpation Extremity: COMMON NORMALS: no joint enlargement and no pedal edema OTHER: Swelling right hallux, distal medial right foot, with maceration lateral right hallux, between the toes, fissure on plantar surface between first and second toes with some crusted blood, clear drainage currently. Neuro: COMMON NORMALS: patient oriented x3 and moves all extremities SE NSORIUM/ORIENTATION: Yes alert Skin: COMMON NORMALS: no rashes or lesions noted GENERAL SKIN EXAM: no rashes or lesions noted Data 06/21/22 01:54 06/21/22 01:54 Micro: Microbiology 06/19/22 15:08 Wound Culture - Final Toe - #1 Staphylococcus aureus 06/19/22 14:21 Blood Culture - Preliminary Blood Staphylococcus aureus 06/19/22 14:26 Blood Culture - Preliminary Blood NEGATIVE TO DATE A&P Assessment and plan (1) Staphylococcus aureus bacteremia: Await sensitivities. Secondary to soft tissue infection of great toe. Vancomycin and Zosyn for now. Stop clindamycin. Check MRSA swab. (2) Soft tissue infection: CT foot negative for abscess or osteomyelitis. Failure of outpatient treatment. Follow-up wound culture and blood culture. Will consult podiatry for further recommendation and wound care. (3) Sepsis: Sepsis with improvement, improving leukocytosis, resolved tachycardia. Source is soft tissue infection of right foot. Blood cultures positive. Continue antibiotics as above. Lactic acidosis 2.4. No other endorgan dysfunction. (4) Hyperglycemia: New diagnosis. A1c 9.5. Insulin sliding scale at high-dose protocol. Will start on oral hypoglycemics on discharge. Dietitian consult for diabetes education. Consistent carbohydrate diet. (5) Peripheral neuropathy: Chronic peripheral neuropathy after stent placement. Discussed with him to avoid ever walking barefoot. Protect his feet. Avoid soaking. Seek medical attention in case of any wounds. (6) Hyponatremia: Mild. Suspect secondary to sepsis. Reassess sodium. Liberalized sodium intake. Plan Full code. Heparin 5000 every 12 hourly for DVT prophylaxis Famotidine for PUD prophylaxis Carb consistent diet. Attestations Medical Necessity Statement*: Requires further hospitalization for management of Staphylococcus bacteremia, soft tissue infection of right great toe, new diagnosis of type 2 diabetes mellitus Time Spent in Patient Care: Greater than 35 minutes Coding Level of Care Code Acute E Learning Specialist for [facility] F[facility] Diagnoses Staphylococcus aureus bacteremia R78.81; B95.61 Soft tissue infection L08.9 Sepsis A41.9 Hyperglycemia R73.9 Peripheral neuropathy G62.9 Hyponatremia E87.1
[2022-06-21] MEDS: gadobenate dimeglumine 20 mL vial IV (17:20)
[2022-06-21] MEDS: piperacillin-tazobactam 3.375 GM in sodium chloride 0.9% (plus) 50 ML IV (17:53)
[2022-06-21] MEDS: ferrous gluconate 324 mg Tablet PO (17:53)
[2022-06-21 20:03] LABS: Glucose Point of Care 404 mg/dL (70-110)
--- NOTE | 2022-06-21 20:23 | PC.NURSE ---
18G IV to L AC infiltrated at this time. IV catheter removed w/tip intact. 20G IV started to R wrist x 1 attempt. Successful, good blood return noted, site flushes w/ease. Zosyn restarted at this time.
--- NOTE | 2022-06-21 20:28 | PC.NURSE ---
Addendum entered by Lakeisha Johnson RN 06/21/22 20:29: Recheck CBG at 2300 Original Note: Pt referred to Dr. Nobles for review of CBG of 404. NNO.
--- NOTE | 2022-06-21 22:51 | PC.NURSE ---
Referred pt to Dr. Nobles for review of pain management. Awaiting orders.
--- NOTE | 2022-06-21 22:55 | PC.NURSE ---
NO received and noted for 1) Morphine 2mg IVP q4h PRN pain. Pt aware of the new orders.
[2022-06-21] MEDS: morphine 4 mg/mL SDV 1 mL 2 MG IVP (23:00)
--- NOTE | 2022-06-21 23:07 | PC.NURSE ---
CBG recheck per physician order w/CBG result of 141. Dr. Nobles notified.
[2022-06-21 23:09] LABS: Glucose Point of Care 141 mg/dL (70-110)
[2022-06-22] VITALS (18 sets, daily range): BP systolic 95–154; BP diastolic 61–101; PULSE 72–89; RESP 14–18; TEMP 36.3–37.4; O2SAT 93–99
[2022-06-22 00:01] LABS: Protein Urine 1+ (Negative); Urine Appearance Clear (CLEAR); Urine Color Yellow (Yellow); pH Urine 5 (5-7)
[2022-06-22 00:02] LABS: Add Urine Culture? No; Add Urine Microscopic? YES; Amorphous Sediment Urine 1+ /hpf; Bilirubin Urine Neg (Negative); Blood Urine 2+ (Negative); Glucose Urine UA 4+ (Normal); Ketones Urine Negative (Negative); Leukocyte Esterase Urine Negative (Negative); Nitrate Urine Negative (Negative); Urobilinogen Urine Norm (Negative)
[2022-06-22] MEDS: vancomycin 1,000 MG in sodium chloride 0.9% 250 ML 250 MG IV ×2 (02:02→14:31)
[2022-06-22] MEDS: piperacillin-tazobactam 3.375 GM in sodium chloride 0.9% (plus) 50 ML IV ×3 (03:23→17:27)
[2022-06-22] MEDS: heparin 5,000 unit/mL INJ 1 mL 5000 UNIT SUBCUT ×2 (05:36→17:23)
[2022-06-22 06:00] LABS: Glucose Point of Care 250 mg/dL (70-110)
--- NOTE | 2022-06-22 06:19 | P.PN_ITS ---
Subjective Subjective: Patient seen bedside this morning. Endorsing increased pain to the right great toe after debridement yesterday. Patient is afebrile. White blood cell count hovering at 13.8. Patient denies any subjective nausea, vomiting, fever, chills, shortness of breath or chest pain. Vitals/I&O/Wt Last Vital Signs Temp 98.2 F 06/22/22 04:00 Pulse 74 06/22/22 04:00 Resp 14 06/22/22 04:00 BP 154/87 06/22/22 04:00 Pulse Ox 96 06/22/22 04:00 O2 Del Method 06/22/22 04:00 06/21/22 06/21/22 06/22/22 14:59 22:59 06:59 Intake Total 770 / 770 900 / 1670 250 / 1920 Output Total 525 / 525 100 / 625 Balance 770 / 770 375 / 1145 150 / 1295 Weight last 48 hrs Weight 149 lb 1 oz Weight 150 lb 3 oz Physical Exam Narrative: GENERAL: Patient is alert and oriented ?3 and in no acute distress. The following is a focused bilateral lower extremity exam. VASCULAR: Dorsalis pedis palpable +2 left and right foot. Posterior tibial arteries palpable +2. Capillary refill time less than 3 seconds to the distal hallux bilaterally. Calf is supple and nontender proximally and distally. Pedal hair growth present. No edema to the lower extremities. NEUROLOGICAL: Protective sensation intact 0/10 sites, tested with [place] Randall monofilament to bilateral feet. DERMATOLOGICAL: Punctate wound to the plantar medial aspect of the right hallux near the level of the interphalangeal joint with purulent drainage expressed, maceration at the right first webspace and desquamation around the base of the right great toe, there is localized erythema to the right great toe. There is no proximal lymphangitic streaking. Wound at the medial aspect of the right gre at toe measures 1.8 cm x 2.3 cm x 0.4 cm. Wound does not probe to bone at the right great toe. Wound tunnels proximally. No other wounds appreciated to the left or right lower extremity. MUSCULOSKELETAL: Tenderness palpation at the right great toe. Able to dorsiflex and plantarflex right great toe. Muscle strength is 5 out of 5 in all 3 cardinal planes to the bilateral foot and ankle. No crepitus with palpation of soft tissue to the right foot. 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 X-ray, CT scan and MRI negative for acute osteomyelitis. I reviewed imaging findings with patient, MRI does not coincide with clinical presentation of worsening of wound to the right great toe, wound tunnels proximally and there is purulence expressed bedside. Given the wound showing worsening signs of infection clinically recommending a surgical debridement today. Patient has not had breakfast. Will hold his diet. He will remain n.p.o. with plans for incision and debridement in the operating room today likely at noon per OR availability. Attestations Medical Necessity Statement*: Diabetic foot infection, right foot Coding Level of Care Code Acute Preparation Supervisor [employer] for [facility] Diagnoses Diabetic peripheral neuropathy associated with type 2 diabetes mellitus E11.42 Staphylococcus aureus bacteremia R78.81; B95.61 Sepsis A41.9 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
[2022-06-22 06:24] LABS: Basophils # 0.1 10^3/uL (0.0-0.1); Basophils % 0.5 %; Eosinophils # 0.4 10^3/uL (0.0-0.8); Eosinophils % 2.9 %; Hematocrit 43.9 % (42.0-52.0); Hemoglobin 14.7 g/dL (11.7-16.6); Lymphocytes % 14.1 %; Mean Corpuscular HGB Conc 33.5 g/dL (30.0-36.0); Mean Corpuscular Hemoglobin 29.4 pg (28.0-34.0); Mean Corpuscular Volume 87.8 fl (80-94); Mean Platelet Volume 10.5 fL (7.4-10.4); Monocytes # 1.2 10^3/uL (0.2-0.9); Monocytes % 8.8 %; Neutrophils # 10.04 10^3/uL (1.8-7.7); Neutrophils % 72.6 %; Nucleated Red Blood Cells % 0 %; Platelet Count 349 10^3/cmm (130-400); Red Cell Distribution Width 11.7 % (12.1-15.1); White Blood Count 13.8 10^3/uL (4.0-10.0)
--- NOTE | 2022-06-22 06:55 | PC.NURSE ---
Dr. Lincoln here this am to assess pt foot wound. Pt is to go to surgery at noon for surgical debridement. Day shift RN aware of surgery time and pt is now NPO.
[2022-06-22 07:02] LABS: Alanine Aminotransferase 18 U/L (0-41); Alkaline Phosphatase 100 U/L (40-130); Blood Urea Nitrogen 13 mg/dL (6-20); Calcium 9.4 mg/dL (8.5-10.5); Carbon Dioxide 27 mmol/L (22-29); Chloride 99 mmol/L (98-107); Chol HDL Ratio 7.28 mg/dL (1.0-5.00); Cholesterol 211 mg/dL (0-200); Globulin 4.1 g/dL (1.3-4.6); Glomerular Filtration Rate 115.8 mL/min (90-130); Glucose 263 mg/dL (65-115); HDL Cholesterol 29 mg/dL (60-100); LDL Cholesterol Calculated 139 mg/dL (50-129); Osmolality Calculated 293 mOsm/kg (285-295); Sodium 137 mmol/L (136-145); Total Bilirubin 0.2 mg/dL (0.15-1.2); Total Protein 7.1 g/dL (6.6-8.7); Triglycerides 213 mg/dL (0-150); VLDL Cholestrol Calculation 43 mg/dL (0-30)
[2022-06-22 07:04] LABS: Anion Gap 15.7 (5-19); Aspartate Amino Transferase 17 U/L (0-40); Potassium 4.7 mmol/L (3.5-5.1)
[2022-06-22] MEDS: insulin lispro 100 unit/1 mL SUBCUT ×3 (08:33→21:01)
[2022-06-22] MEDS: ferrous gluconate 324 mg Tablet PO ×2 (08:33→17:23)
--- NOTE | 2022-06-22 11:22 | ANES.PREANE2 ---
Pre-Anesthetic Assessment Height/Weight: Height 1.73 m Weight 67.614 kg Temp Pulse Resp BP Pulse Ox O2 Del Method 98.5 F 76 17 140/84 95 06/22/22 07:41 06/22/22 07:41 06/22/22 07:41 06/22/22 07:41 06/22/22 07:41 06/22/22 07:41 Operation Date: 06/22/22 12:00 Proposed Procedures p Incision And Drainage right foot(Right) - HÉCTOR HernandezM Was Beta Victorino taken within 24 hours: N/A Was Clonidine taken within 24 hours: N/A Last intake: Intake Last Liquid Date 06/21/22 Last Liquid Time 20:00 Last Solid Date 06/21/22 Last Solid Time 20:00 Social Alcohol and No tobacco Exam alert, oriented x 3, clear to auscultation bilaterally and regular rate & rhythm Airway Submandibular: within normal limits Cervical ROM: within normal limits Mallampati: Class II Dentition: full History/ROS No significant history except as noted and No significant complaints Pulmonary None reported CV/HEM None reported None reported Hepatic None reported GI None reported Metabolic Diabetes Mellitus [facility] None reported Neuropsych Neuropathy Anesthetic Plan ASA status: 3 Anesthesia: Anesthesia Evaluation and MAC Risk of > 500 ml blood loss (7ml/kg in children): No Medications/Allergies Home Medications Medication Instructions Recorded Confirmed Last Taken Type No Known Home Medications 06/19/22 06/19/22 Unknown History Allergies Allergy/AdvReac Type Severity Reaction Status Date / Time No Known Allergies Allergy Verified 06/19/22 13:56 Current Medications Generic Name Dose Route Start Last Admin Trade Name [place] PRN Reason Stop Dose Admin Acetaminophen 650 mg 06/19/22 15:32 06/21/22 20:15 Acetaminophen 325 Mg Tablet PO 650 mg Q6H PRN Administration Mild/Mod Pain Or Temp >/= 101 Ferrous Gluconate 324 mg 06/21/22 18:00 06/22/22 08:33 Ferrous Gluconate 324 Mg Tablet PO 324 mg BIDWM RONNY Administration Heparin Sodium (Porcine) 5,000 unit 06/19/22 18:31 06/22/22 05:36 Heparin 5,000 Unit/Ml Inj 1 Ml SUBCUT 5,000 unit Q12H RONNY Administration Vancomycin HCl 1,000 mg/ 250 mls @ 250 mls/hr 06/20/22 03:00 06/22/22 03:23 Sodium Chloride IV Infused Q12H RONNY Infusion Protocol Piperacillin Sod/Tazobactam 50 mls @ 12.5 mls/hr 06/21/22 15:00 06/22/22 10:06 Sod 3.375 gm/ Sodium Chloride IV 12.5 mls/hr Q8H RONNY Administration Protocol As Directed Insulin Human Lispro 0 unit 06/19/22 18:31 06/22/22 08:33 Insulin Lispro 100 Unit/1 Ml SUBCUT 10 unit WM&BEDTIME RONNY Administration Protocol Morphine Sulfate 2 mg 06/21/22 22:53 06/21/22 23:00 Morphine 4 Mg/Ml Sdv 1 Ml IVP 2 mg Q4H PRN Administration MODERATE TO SEVERE PAIN PFSH Anesthesia Medical History Arsenic poisoning Peripheral neuropathy Surgical History No significant past surgical history Family History Other Diabetes Social History Smoking and tobacco status: never smoked Alcohol intake: current Alcohol intake frequency: few times a week Substance/Drug Use: never Lives independently: Yes Marital status: Single Current occupational status: previously employed Previous occupational history: Laid off, is supposed to start work again next year. Data Anesthesia 06/22/22 06:05 06/22/22 06:05 Short CBC 06/21/22 06/22/22 Range/Units 01:54 06:05 WBC 13.7 H 13.8 H (4.0-10.0) 10^3/uL Hgb 13.6 14.7 (11.7-16.6) g/dL Hct 41.6 L 43.9 (42.0-52.0) % MCV 88.5 87.8 (80-94) fl Plt Count 347 349 (130-400) 10^3/cmm Neut % (Auto) 71.7 72.6 % Neut # (Auto) 9.81 H 10.04 H (1.8-7.7) 10^3/uL BMP 06/21/22 06/22/22 01:54 06:05 Sodium 135 L 137 Potassium 4.2 4.7 Chloride 98 99 Carbon Dioxide 28 27 BUN 15 13 Creatinine 0.9 0.7 Glucose 207 H 263 H Calcium 9.3 9.4 Liver Function 06/22/22 Range/Units 06:05 Total Bilirubin 0.2 (0.15-1.2) mg/dL AST 17 (0-40) U/L ALT 18 (0-41) U/L Alkaline Phosphatase 100 (40-130) U/L Albumin 3.0 L (3.5-5.2) g/dL Urine 06/21/22 Range/Units 22:45 Urine Color Yellow (Yellow) Urine Appearance Clear (CLEAR) Urine pH 5 (5-7) Ur Specific [place] 1.020 (1.005-1.030) Urine Protein 1+ H (Negative) Urine Glucose (UA) 4+ H (Normal) Urine Ketones Negative (Negative) Urine Nitrate Negative (Negative) Urine Bilirubin Neg (Negative) Ur Leukocyte Esterase Negative (Negative) Urine RBC 10-15 H (0-2) /hpf Urine WBC None (0-5) /hpf Microbiology 06/22/22 06:05 Blood Culture - Preliminary Blood SPECIMEN COLLECTED 06/22/22 06:05 Blood Culture - Preliminary Blood SPECIMEN COLLECTED 06/19/22 15:08 Wound Culture - Final Toe - #1 Staphylococcus aureus 06/19/22 14:21 Blood Culture - Preliminary Blood Staphylococcus aureus Cardiac Studies: No Data to Display
[2022-06-22 11:35] LABS: Glucose Point of Care 169 mg/dL (70-110)
--- NOTE | 2022-06-22 12:01 | W.PM.OPSUD ---
Surgery/Procedure H&P Update DATE OF PROCEDURE: June 19, 2022 DATE H&P PERFORMED: 06/19/22 CHANGES TO PREVIOUS DOCUMENTATION: none PLANNED PROCEDURE: Operation Date: 06/22/22 12:00 Proposed Procedures p Incision And Drainage right foot(Right) - Damian Lincoln DPM
[2022-06-22] MEDS: lidocaine 1% INJ 20 mL MDV (mL) INJECTION (12:22)
[2022-06-22 12:44] LABS: Glucose Point of Care 177 mg/dL (70-110)
--- NOTE | 2022-06-22 12:52 | PM.OP ---
Operative Report Date of procedure: June 22, 2022 Pre-op diagnosis: Diabetic foot ulcer with infection, right foot. Post-op diagnosis: Same Post-op findings: Diabetic ulcer exposed to flexor houses longus tendon, plantar right great toe. Procedure done: Incision and debridement down to tendon right foot Implants: None Specimens removed/disposition: Aerobic and anaerobic soft tissue cultures taken intraoperatively of the right plantar hallux wound. Sent to microbiology for gram stain, culture and sensitivity. Pathology: None Surgeon: Damian Lincoln D.P.M. Cotton Machine Operator: Yvonne Estimated blood loss: 5 9 IV fluids: 0 Urine output: None Complications: None Findings: Devitalized soft tissue down to tendon sheath and tendon right foot Brief History: Patient is a 57-year-old diabetic male presented with erythema, pain and purulent drainage from a wound at the plantar aspect of his right great toe for several weeks in duration, reports stepping on a thorn. [place], he had amoxicillin on hand and took 500 mg amoxicillin tablets every 6 hours for 3 days, the wound continues to progress with increased redness, drainage and pain so he presented to the emergency department, leukocytosis on admission. CT scan and MRI negative for acute osteomyelitis. Clinically his wound had progressed throughout the hospitalization, showed increased redness and devitalized soft tissue. Recommended surgical debridement patient was agreeable. Has been n.p.o. since midnight. No guarantees written, expressed or implied. Procedure: Under mild sedation the patient was brought to the operating room and remained on the gurney in supine position. A timeout was performed. Anesthesia was then administered by the anesthesia service. Local anesthesia was injected by myself consisting of 30 cc of one-to-one mixture 1% lidocaine and 0.25% Marcaine plain in a right Ibanez block fashion. Well-padded pneumatic tourniquet was applied to the right ankle. The right lower extremity was then scrubbed, prepped and draped utilizing normal aseptic technique. Right foot was elevated and the right ankle tourniquet was inflated to 250 mmHg. Attention was then directed to the plantar aspect of the right great toe where purulent drainage was expressed, devitalized soft tissue was sharply debrided excisionally nature with pickups and a #15 blade down to the flexor hallucis longus tendon and tendon sheath. All devitalized tissue was debrided sharply and the wound was irrigated with copious amounts of sterile saline solution. Post debridement wound measurements are 3.5 cm x 3.9 cm x 0.4 cm. Bleeding skin margins appreciated. No other purulence or devitalized tissue visualized. The wound was dressed with saline wet-to-dry and tourniquet was deflated with a prompt hyperemic response noted to the distal digits of the right foot. Patient tolerated the procedure and anesthesia well and was transferred to the PACU with vital signs stable and vascular status intact. Following a period of postoperative monitoring be transferred back to the floor. Will continue IV antibiotics. Will order dressing changes saline wet-to-dry 3 times daily. Will continue to monitor.
[2022-06-22] MEDS: sodium chloride 0.9% 1,000 ML 30 ML IV (13:23)
--- NOTE | 2022-06-22 13:29 | ANE.PACU2 ---
Inpatient post-anesthesia follow up: Airway intact: Yes Vital signs: Temperature 97.6 F Pulse Rate 85 Respiratory Rate 18 Blood Pressure 98/67 Pulse Oximetry 94 Oxygen Delivery Me thod Room Air Oxygen Flow Rate 6 Fraction of Inspir ed Oxygen Hydration adequate: Yes Nausea and vomiting: No Pain level: 1 Mental status: Baseline
--- NOTE | 2022-06-22 14:38 | P.PN_ITS ---
Subjective Subjective: No acute events overnight. Patient seen today morning post over debridement. He tolerated the procedure well. Denies any nausea vomiting, headache. Has remained hemodynamically stable and afebrile on room air. Vitals/I&O/Wt Last Vital Signs Temp 97.6 F 06/22/22 12:44 Pulse 85 06/22/22 12:44 Resp 18 06/22/22 12:44 BP 98/67 06/22/22 12:44 Pulse Ox 94 06/22/22 12:44 O2 Del Method 06/22/22 12:44 O2 Flow Rate 6 06/22/22 12:34 06/21/22 06/22/22 06/22/22 22:59 06:59 14:59 Intake Total 900 / 1670 250 / 1920 150 / 150 Output Total 525 / 525 100 / 625 305 / 305 Balance 375 / 1145 150 / 1295 -155 / -155 Weight last 48 hrs Weight 67.614 kg Weight 68.124 kg Physical Exam Const: COMMON NORMALS: patient oriented x3 and alert GENERAL APPEARANCE: cooperative ORIENTATION/CONSCIOUSNESS: Yes awake HENMT: COMMON NORMALS: oropharynx normal Neck/C-Spine: COMMON NORMALS: no JVD Resp: COMMON NORMALS: normal respiratory effort and clear to auscultation bilaterally AUSCULTATION: clear to auscultation bilaterally Cardio: COMMON NORMALS: no JVD, regular rhythm, S1 normal heart sound present, S2 normal heart sound present and No murmurs present (Cardio) RHYTHM: regular rhythm HEART SOUNDS: S1 normal heart sound present and S2 normal heart sound present GI: COMMON NORMALS: Normal to inspection, nondistended, normoactive bowel sounds present, Soft to palpation and non-tender PALPATION: Yes Soft to palpation Extremity: COMMON NORMALS: no joint enlargement and no pedal edema OTHER: Swelling right hallux, distal medial right foot, with maceration lateral right hallux, between the toes, fissure on plantar surface between first and second toes with some crusted blood, clear drainage currently. Neuro: COMMON NORMALS: patient oriented x3 and moves all extremities SENSORIUM/ORIENTATION: Yes alert Skin: COMMON NORMALS: no rashes or lesions noted GENERAL SKIN EXAM: no rashes or lesions noted Data 06/22/22 06:05 06/22/22 06:05 Micro: Microbiology 06/21/22 22:30 MRSA Culture - Final Nose 06/22/22 06:05 Blood Culture - Preliminary Blood SPECIMEN COLLECTED 06/22/22 06:05 Blood Culture - Preliminary Blood SPECIMEN COLLECTED 06/19/22 15:08 Wound Culture - Final Toe - #1 Staphylococcus aureus 06/19/22 14:21 Blood Culture - Preliminary Blood Staphylococcus aureus A&P Assessment and plan (1) Staphylococcus aureus bacteremia: Await sensitivities. Secondary to soft tissue infection of great toe. Vancomycin and Zosyn for now. Stop clindamycin. Check MRSA swab. (2) Soft tissue infection: CT foot negative for abscess or osteomyelitis. Failure of outpatient treatment. Follow-up wound culture and blood culture. Will consult podiatry for further recommendation and wound care. (3) Sepsis: Sepsis with improvement, improving leukocytosis, resolved tachycardia. Source is soft tissue infection of right foot. Blood cultures positive. Continue antibiotics as above. Lactic acidosis 2.4. No other endorgan dysfunction. (4) Hyperglycemia: New diagnosis. A1c 9.5. Insulin sliding scale at high-dose protocol. Will start on oral hypoglycemics on discharge. Dietitian consult for diabetes education. Consistent carbohydrate diet. (5) Peripheral neuropathy: Chronic peripheral neuropathy after stent placement. Discussed with him to avoid ever walking barefoot. Protect his feet. Avoid soaking. Seek medical attention in case of any wounds. (6) Hyponatremia: Mild. Suspect secondary to sepsis. Reassess sodium. Liberalized sodium intake. Plan Full code. Heparin 5000 every 12 hourly for DVT prophylaxis Famotidine for PUD prophylaxis Carb consistent diet. Plan for day: Follow blood cultures. Repeat blood cultures sent today. Blood cultures from admission positive for staph aureus. Wound culture positive for staph aureus. Will await susceptibilities. Appreciate podiatry recommendations. Patient post OR debridement day 0 today. Follow-up OR cultures. For now continue with vancomycin and Zosyn. Will change antibiotics as per culture sensitivities. Continue with insulin sliding scale. We will plan to discharge on oral hypoglycemics. Patient plans to move to [place] post discharge to live with his fianc?e. Patient will need IV antibiotics for next 2 weeks after first negative blood culture. We will plan for PICC line accordingly. Case management alerted. Attestations Medical Necessity Statement*: Requires further hospitalization for staph aureus is bacteremia, soft tissue infection at great toe post foreign body in insertion leading to staph infection. Needing OR debridement, new type 2 diabetes mellitus Time Spent in Patient Care: Greater than 35 minutes Coding Level of Care Code Acute Wild Life Photographer for g Fwd Diagnoses Staphylococcus aureus bacteremia R78.81; B95.61 Soft tissue infection L08.9 Sepsis A41.9 Hyperglycemia R73.9 Peripheral neuropathy G62.9 Hyponatremia E87.1
[2022-06-22] MEDS: HYDROcodone-acetaminophen 5-325 mg Tablet 1 TAB PO ×2 (17:22→22:56)
[2022-06-22] MEDS: morphine 4 mg/mL SDV 1 mL 2 MG IVP (17:36)
[2022-06-22 18:19] LABS: Glucose Point of Care 345 mg/dL (70-110)
[2022-06-22 21:04] LABS: Glucose Point of Care 289 mg/dL (70-110)
[2022-06-23] VITALS (10 sets, daily range): BP systolic 131–159; BP diastolic 76–84; PULSE 62–73; RESP 16–20; TEMP 36.6–36.9; O2SAT 96–99
[2022-06-23] MEDS: piperacillin-tazobactam 3.375 GM in sodium chloride 0.9% (plus) 50 ML IV ×3 (01:39→17:56)
[2022-06-23] MEDS: vancomycin 1,000 MG in sodium chloride 0.9% 250 ML 250 MG IV ×2 (03:38→15:29)
[2022-06-23] MEDS: HYDROcodone-acetaminophen 5-325 mg Tablet 1 TAB PO ×3 (03:53→16:45)
[2022-06-23] MEDS: heparin 5,000 unit/mL INJ 1 mL 5000 UNIT SUBCUT ×2 (05:54→17:59)
[2022-06-23 06:26] LABS: Glucose Point of Care 238 mg/dL (70-110)
[2022-06-23] MEDS: morphine 4 mg/mL SDV 1 mL 2 MG IVP ×2 (06:55→16:43)
--- NOTE | 2022-06-23 07:32 | P.PN_ITS ---
Subjective Subjective: Patient is seen bedside this morning. He is 1 day status post incision and debridement right great toe diabetic foot ulcer. States his pain is being managed. Denies any acute events overnight. Patient denies any subjective nausea, vomiting, fever, chills, shortness of breath or chest pain. Vitals/I&O/Wt Last Vital Signs Temp 98.0 F 06/23/22 03:53 Pulse 63 06/23/22 06:17 Resp 20 H 06/23/22 06:55 BP 137/84 06/23/22 03:53 Pulse Ox 98 06/23/22 03:53 O2 Del Method 06/23/22 03:53 O2 Flow Rate 6 06/22/22 12:34 06/22/22 06/23/22 06/23/22 22:59 06:59 14:59 Intake Total 740 / 890 540 / 1430 Output Total 650 / 955 800 / 1755 Balance 90 / -65 -260 / -325 Weight last 48 hrs Weight 149 lb 1 oz Physical Exam 2 Narrative: GENERAL: Patient is alert and oriented ?3 and in no acute distress. The following is a focused bilateral lower extremity exam. VASCULAR: Dorsalis pedis palpable +2 left and right foot. Posterior tibial arteries palpable +2. Capillary refill time less than 3 seconds to the distal hallux bilaterally. Calf is supple and nontender proximally and distally. Pedal hair growth present. No edema to the lower extremities. NEUROLOGICAL: Protective sensation intact 0/10 sites, tested with [place] Randall monofilament to bilateral feet. DERMATOLOGICAL: Punctate wound to the plantar medial aspect of the right hallux near the level of the interphalangeal joint with purulent drainage expressed, maceration at the right first webspace and desquamation around the base of the right great toe, there is localized erythema to the right great toe. There is no proximal lymphangitic streaking. Wound at the medial aspect of the right great toe measures?3.5 cm x 3.9 cm x 0.4 cm. Wound does not probe to bone at the right great toe. Exposed flexor tendon. MUSCULOSKELETAL: Tenderness palpation at the right great toe. Able to dorsiflex and plantarflex right great toe. Muscle strength is 5 out of 5 in all 3 cardinal planes to the bilateral foot and ankle. No crepitus with palpation of soft tissue to the right foot. 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 1 day status post incision and debridement right foot. Date of operation 06/22/2022 Extensive soft tissue infection with exposed flexor tendon right plantar hallux Recommend continuing IV antibiotics, currently on Vanco Zosyn. Will continue daily postoperative monitoring. No significant improvement after yesterday's debridement. Would like to continue to monitor, he may require additional debridement pending his response. Order for dressing changes saline wet-to-dry 3 times daily. May heel touch for transfers on right foot. Attestations Medical Necessity Statement*: Diabetic foot infection, right. 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
[2022-06-23] MEDS: ferrous gluconate 324 mg Tablet PO ×2 (08:42→18:00)
[2022-06-23] MEDS: insulin lispro 100 unit/1 mL SUBCUT ×3 (08:42→17:55)
[2022-06-23] MEDS: ondansetron 2 mg/ML SDV 2 mL 4 MG IVP (08:57)
[2022-06-23 10:27] LABS: Basophils # 0.1 10^3/uL (0.0-0.1); Basophils % 0.5 %; Eosinophils # 0.4 10^3/uL (0.0-0.8); Eosinophils % 2.5 %; Hematocrit 40.6 % (42.0-52.0); Hemoglobin 13.5 g/dL (11.7-16.6); Lymphocytes # 1.4 10^3/uL (0.8-4.8); Lymphocytes % 10.3 %; Mean Corpuscular HGB Conc 33.3 g/dL (30.0-36.0); Mean Corpuscular Hemoglobin 29.3 pg (28.0-34.0); Mean Corpuscular Volume 88.3 fl (80-94); Mean Platelet Volume 9.8 fL (7.4-10.4); Monocytes # 1.4 10^3/uL (0.2-0.9); Monocytes % 9.7 %; Neutrophils # 10.56 10^3/uL (1.8-7.7); Neutrophils % 76.3 %; Nucleated Red Blood Cells % 0 %; Platelet Count 348 10^3/cmm (130-400); Red Cell Distribution Width 11.8 % (12.1-15.1); White Blood Count 13.9 10^3/uL (4.0-10.0)
[2022-06-23 10:48] LABS: Alanine Aminotransferase 16 U/L (0-41); Albumin Level 2.7 g/dL (3.5-5.2); Alkaline Phosphatase 88 U/L (40-130); Anion Gap 11.1 (5-19); Aspartate Amino Transferase 20 U/L (0-40); Blood Urea Nitrogen 10 mg/dL (6-20); Calcium 8.9 mg/dL (8.5-10.5); Carbon Dioxide 28 mmol/L (22-29); Chloride 100 mmol/L (98-107); Globulin 3.5 g/dL (1.3-4.6); Glomerular Filtration Rate 115.8 mL/min (90-130); Glucose 242 mg/dL (65-115); Osmolality Calculated 287 mOsm/kg (285-295); Potassium 4.1 mmol/L (3.5-5.1); Sodium 135 mmol/L (136-145); Total Bilirubin 0.2 mg/dL (0.15-1.2); Total Protein 6.2 g/dL (6.6-8.7)
[2022-06-23] MEDS: insulin glargine 100 units/1 mL 30 UNIT SUBCUT (10:57)
[2022-06-23 12:18] LABS: Glucose Point of Care 231 mg/dL (70-110)
--- NOTE | 2022-06-23 14:59 | PM.PN ---
Subjective Subjective: No acute events overnight. Underwent or debridement yesterday. Tolerated well. On examination today lying comfortably in bed. Denies any nausea, vomiting, headache. Has remained afebrile and hemodynamically stable. Vitals/I&O/Wt Last Vital Signs Temp 98 F 06/23/22 11:33 Pulse 70 06/23/22 11:33 Resp 17 06/23/22 11:33 BP 131/76 06/23/22 11:33 Pulse Ox 97 06/23/22 11:33 O2 Del Method 06/23/22 03:53 O2 Flow Rate 6 06/22/22 12:34 06/22/22 06/23/22 06/23/22 22:59 06:59 14:59 Intake Total 740 / 890 540 / 1430 210 / 210 Output Total 650 / 955 800 / 1755 500 / 500 Balance 90 / -65 -260 / -325 -290 / -290 Weight last 48 hrs Weight 67.614 kg Physical Exam Const: COMMON NORMALS: patient oriented x3 and alert GENERAL APPEARANCE: cooperative ORIENTATION/CONSCIOUSNESS: Yes awake HENMT: COMMON NORMALS: oropharynx normal Neck/C-Spine: COMMON NORMALS: no JVD Resp: COMMON NORMALS: normal respiratory effort and clear to auscultation bilaterally AUSCULTATION: clear to auscultation bilaterally Cardio: COMMON NORMALS: no JVD, regular rhythm, S1 normal heart sound present, S2 normal heart sound present and No murmurs present (Cardio) RHYTHM: regular rhythm HEART SOUNDS: S1 normal heart sound present and S2 normal heart sound present GI: COMMON NORMALS: Normal to inspection, nondistended, normoactive bowel sounds present, Soft to palpation and non-tender PALPATION: Yes Soft to palpation Extremity: COMMON NORMALS: no joint enlargement and no pedal edema OTHER: Swelling right hallux, distal medial right foot, with maceration lateral right hallux, between the toes, fissure on plantar surface between first and second toes with some crusted blood, clear drainage currently. Neuro: COMMON NORMALS: patient oriented x3 and moves all extremities SENSORIUM/ORIENTATION: Yes alert Skin: COMMON NORMALS: no rashes or lesions noted GENERAL SKIN EXAM: no rashes or lesions noted Data 06/23/22 10:15 06/23/22 10:15 Micro: Microbiology 06/22/22 12:20 Gram Stain - Final Toe - #1 Abscess Culture - Preliminary Coag positive Staphylococcus 06/22/22 06:05 Blood Culture - Preliminary Blood NEGATIVE TO DATE 06/22/22 06:05 Blood Culture - Preliminary Blood NEGATIVE TO DATE 06/21/22 22:30 MRSA Culture - Final Nose A&P Assessment and plan (1) Staphylococcus aureus bacteremia: MSSA. Secondary to soft tissue infection of great toe. Vancomycin and Zosyn for now. For now we will continue vancomycin and Zosyn. On discharge we will plan to continue IV antibiotics for 4 weeks overall. Plan to discharge on 2 g of ceftriaxone daily. (2) Soft tissue infection: Post OR debridement day 1. Follow-up wound culture and blood culture. So far both growing MSSA. We will follow-up over cultures. Appreciate podiatry recommendations. (3) Sepsis: Sepsis with improvement, improving leukocytosis, resolved tachycardia. Source is soft tissue infection of right foot. Blood cultures positive. Continue antibiotics as above. Lactic acidosis 2.4. No other endorgan dysfunction. (4) Hyperglycemia: New diagnosis. A1c 9.5. Insulin sliding scale at high-dose protocol. Lantus 30 units every morning. Will start on oral hypoglycemics on discharge. Dietitian consult for diabetes education. Consistent carbohydrate diet. (5) Peripheral neuropathy: Chronic peripheral neuropathy after stent placement. Discussed with him to avoid ever walking barefoot. Protect his feet. Avoid soaking. Seek medical attention in case of any wounds. (6) Hyponatremia: Mild. Suspect secondary to sepsis. Reassess sodium. Liberalized sodium intake. Plan Full code. Heparin 5000 every 12 hourly for DVT prophylaxis Famotidine for PUD prophylaxis Carb consistent diet. Attestations Medical Necessity Statement*: Requires further hospitalization for management of MSSA bacteremia, soft tissue infection of great toe, new diagnosis of uncontrolled type 2 diabetes mellitus. Time Spent in Patient Care: Greater than 35 minutes Coding Level of Care Code Acute Laminating Machine Operator for [facility] Fwd Diagnoses Staphylococcus aureus bacteremia R78.81; B95.61 Soft tissue infection L08.9 Sepsis A41.9 Hyperglycemia R73.9 Peripheral neuropathy G62.9 Hyponatremia E87.1
[2022-06-23 15:07] LABS: Vancomycin Trough 10.9 ug/mL (10-15)
[2022-06-23 17:34] LABS: Glucose Point of Care 185 mg/dL (70-110)
[2022-06-23 21:40] LABS: Glucose Point of Care 83 mg/dL (70-110)
[2022-06-24] VITALS (8 sets, daily range): BP systolic 133–163; BP diastolic 70–88; PULSE 67–76; RESP 14–17; TEMP 36.6–36.7; O2SAT 95–98
[2022-06-24] MEDS: HYDROcodone-acetaminophen 5-325 mg Tablet 1 TAB PO ×4 (00:06→21:24)
[2022-06-24] MEDS: vancomycin 1,000 MG in sodium chloride 0.9% 250 ML 250 MG IV (02:02)
[2022-06-24] MEDS: piperacillin-tazobactam 3.375 GM in sodium chloride 0.9% (plus) 50 ML IV (03:26)
[2022-06-24 05:31] LABS: Basophils # 0.1 10^3/uL (0.0-0.1); Basophils % 0.6 %; Eosinophils # 0.4 10^3/uL (0.0-0.8); Eosinophils % 3.4 %; Hematocrit 39.5 % (42.0-52.0); Hemoglobin 12.9 g/dL (11.7-16.6); Lymphocytes % 18.5 %; Mean Corpuscular HGB Conc 32.7 g/dL (30.0-36.0); Mean Corpuscular Hemoglobin 28.7 pg (28.0-34.0); Mean Platelet Volume 9.7 fL (7.4-10.4); Monocytes # 1.2 10^3/uL (0.2-0.9); Monocytes % 10.7 %; Neutrophils # 7.14 10^3/uL (1.8-7.7); Neutrophils % 65.6 %; Nucleated Red Blood Cells % 0 %; Platelet Count 393 10^3/cmm (130-400); Red Blood Count 4.49 10^6/uL (4.1-5.3); Red Cell Distribution Width 11.8 % (12.1-15.1); White Blood Count 10.9 10^3/uL (4.0-10.0)
[2022-06-24 05:50] LABS: Alanine Aminotransferase 17 U/L (0-41); Albumin Level 2.8 g/dL (3.5-5.2); Alkaline Phosphatase 85 U/L (40-130); Anion Gap 11.8 (5-19); Aspartate Amino Transferase 16 U/L (0-40); Blood Urea Nitrogen 13 mg/dL (6-20); Calcium 8.7 mg/dL (8.5-10.5); Carbon Dioxide 27 mmol/L (22-29); Chloride 103 mmol/L (98-107); Globulin 3.4 g/dL (1.3-4.6); Glomerular Filtration Rate 115.8 mL/min (90-130); Glucose 137 mg/dL (65-115); Osmolality Calculated 288 mOsm/kg (285-295); Potassium 3.8 mmol/L (3.5-5.1); Sodium 138 mmol/L (136-145); Total Bilirubin 0.2 mg/dL (0.15-1.2); Total Protein 6.2 g/dL (6.6-8.7)
[2022-06-24] MEDS: heparin 5,000 unit/mL INJ 1 mL 5000 UNIT SUBCUT ×2 (06:07→17:28)
[2022-06-24] MEDS: insulin glargine 100 units/1 mL 30 UNIT SUBCUT (06:07)
[2022-06-24 06:42] LABS: Glucose Point of Care 131 mg/dL (70-110)
--- NOTE | 2022-06-24 07:22 | P.PN_ITS ---
Subjective Subjective: Patient is seen bedside this morning. He is 2 days status post incision and debridement right great toe diabetic foot ulcer. States his pain is being managed. Has some pain with dressing changes. Denies any acute events overnight. Patient denies any subjective nausea, vomiting, fever, chills, shortness of breath or chest pain. Vitals/I&O/Wt Last Vital Signs Temp 97.8 F 06/24/22 07:10 Pulse 74 06/24/22 07:10 Resp 16 06/24/22 07:10 BP 161/84 06/24/22 07:10 Pulse Ox 96 06/24/22 07:10 O2 Del Method 06/24/22 07:10 O2 Flow Rate 6 06/22/22 12:34 06/23/22 06/24/22 06/24/22 22:59 06:59 14:59 Intake Total 1660 / 1870 250 / 2120 Output Total 500 / 1000 300 / 1300 Balance 1160 / 870 -50 / 820 Physical Exam Narrative: GENERAL: Patient is alert and oriented ?3 and in no acute distress. The following is a focused bilateral lower extremity exam. VASCULAR: Dorsalis pedis palpable +2 left and right foot. Posterior tibial arteries palpable +2. Capillary refill time less than 3 seconds to the distal hallux bilaterally. Calf is supple and nontender proximally and distally. Pedal hair growth present. No edema to the lower extremities. NEUROLOGICAL: Protective sensation intact 0/10 sites, tested with [place] Randall monofilament to bilateral feet. DERMATOLOGICAL: Wound at the medial aspect of the right great toe measures?3.5 cm x 3.9 cm x 0.4 cm. Wound does not probe to bone at the right great toe. Exposed flexor tendon. Improving periwound erythema. No purulent drainage from the wound. No malodor. No proximal lymphangitic streaking. MUSCULOSKELETAL: Tenderness palpation at the right great toe. Able to dorsiflex and plantarflex right great toe. Muscle strength is 5 out of 5 in all 3 cardinal planes to the bilateral foot and ankle. No crepitus with palpation of soft tissue to the right foot. 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 2 days status post incision and debridement right foot DOS 06/22/2022. Soft tissue infection with exposed flexor tendon right plantar hallux. * Right foot wound culture significant for MSSA * No leukocytosis, this a.m. * Nonweightbearing right foot, heel touch for transfers and offloading with cam boot. * Soft tissue ulceration showing clinical signs of improvement with decreased erythema, no purulent drainage. * Continue 3 times daily saline wet-to-dry dressing changes, right foot * Okay for discharge/transfer from podiatry standpoint. * Patient plans to move out of state, would require referral to wound care facility vs [facility] wound care clinic should he remain in an area. 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
[2022-06-24] MEDS: morphine 4 mg/mL SDV 1 mL 2 MG IVP (07:41)
--- NOTE | 2022-06-24 08:30 | CT_ITS ---
WS: [id number] CTA HEAD AND NECK TECHNIQUE: Contrast enhanced CTA of the head and neck with coronal and sagittal reformatted images an d maximum intensity projection (MIP) images. NASCET criteria utilized. CLINICAL INFORMATION: weakness COMPARISON: None. DLP: 1020.[address] scans at [facility] use at least one of these dose optimization techniques: automated e xposure control; mA and/or kV adjustment per patient size (includes targeted exams where dose is matc hed to clinical indication); or iterative reconstruction. FINDINGS: Paranasal sinuses and mastoid air cells are well aerated. Normal posterior nasopharynx. Nor mal parapharyngeal fat. No evidence of intracranial hemorrhage or mass effect. RIGHT: RIGHT common carotid artery is patent. No significant RIGHT ICA stenosis. ICA is patent to the skull base. LEFT: LEFT common carotid artery is patent. No significant LEFT ICA stenosis. LEFT ICA is patent to t he skull base. INTRACRANIAL CTA: LEFT dominant vertebral artery. Smaller but patent RIGHT vertebral artery. RIGHT vertebral artery brandon nly ends in PICA. Basilar artery is patent. Normal vascularity to the HEAD UP OPERATOR territory bilaterally. Both ICAs are patent at the skull base. Mild cavernous carotid calcification. Normal vascularity to t he BRITTANY and MCA territories bilaterally. No evidence of flow-limiting stenosis. Basilar artery is myrick nt. CT/CT angio headneck* [id number] IMPRESSION: Normal CTA head neck
[2022-06-24 08:32] LABS: Glucose Point of Care 121 mg/dL (70-110)
--- NOTE | 2022-06-24 09:01 | USCV_ITS ---
Aaron Salas Age: 57 Gender: M : 1965 Exam Date: 06/24/2022 10:32 Ordering Phys: Jamari Morrison MD Technologist: JIMMY [place] [facility] [place]ication: Possible IE, MSRA Bacteremia BP: 155 / 84 HR: 71 Rhythm: Sinus Technical Quality: Adequate MEASUREMENTS (Male / Female) Normal Values 2D ECHO LV Diastolic Diameter PLAX 4.2 cm 4.2 - 5.9 / 3.9 - 5.3 cm LV Systolic Diameter PLAX 2.6 cm IVS Diastolic Thickness 0.8 cm 0.6 - 1.0 / 0.6 - 0.9 cm IVS Systolic Thickness 1.2 cm LVPW Diastolic Thickness 0.8 cm 0.6 - 1.0 / 0.6 - 0.9 cm LVPW Systolic Thickness 1.3 cm LVOT Diameter 2.1 cm LV Ejection Fraction 2D Teich 69.5 % LV Ejection Fraction MOD 2C 62.4 % LV Ejection Fraction 2C AL 65.3 % LA Diameter 2.9 cm LA Width 3.7 cm LA Height 3.5 cm RA Width 2.3 cm RA Height 3.8 cm Aorta at Sinotubular Diameter 2.9 cm IVC Diameter 1.3 cm M-MODE Aortic Annulus Diameter 3.3 cm LA Ao Ratio MM 0.9 MV E Point Septal Separation 0.3 cm DOPPLER AV Peak Velocity 102.0 cm/s LVOT Peak Velocity 79.0 cm/s AV Area Cont Eq vti 2.9 cm squared AV Area Cont Eq pk 2.6 cm squared MV Area PHT 3.9 cm squared Mitral E to A Ratio 1.2 MV E' Velocity 46.0 cm/s Mitral E to MV E' Ratio 8.1 Mitral E to LV E' Lateral Ratio 6.6 Mitral E to LV E' Septal Ratio 10.3 TR Peak Velocity 304.0 cm/s TR Peak Gradient 37.0 mmHg Right Atrial Pressure 3.0 mmHg Pulmonary Artery Systolic Pressu 40.0 mmHg PV Peak Velocity 91.0 cm/s FINDINGS Left Ventricle Left ventricle is normal in size. LV systolic function is normal with EF 55 to 60%. No regional wall motion abnormalities are seen. Right Ventricle Normal in size and function Right Atrium Normal in size Left Atrium Normal in size Mitral Valve Structurally normal mitral valve.Trace mitral regurgitation Aortic Valve Aortic valve is thickened. No significant stenosis or regurgitation. Tricuspid Valve Trace tricuspid regurgitation. Insufficient TR jet to calculate RVSP Pulmonic Valve Not well visualized Pericardium Normal Aorta Normal in size IVC Appears to be normal CONCLUSIONS LV systolic function is normal with EF of 55-60% Trace mitral regurgitation Trace tricuspid regurgitation No comparison studies are available Steffen Lentz MD (Electronically Signed) Final Date: 24 June 2022 11:50 S
[2022-06-24] MEDS: ferrous gluconate 324 mg Tablet PO ×2 (09:18→17:29)
[2022-06-24] MEDS: losartan 50 mg Tablet 25 MG PO (09:23)
[2022-06-24] MEDS: iohexol 350 mg/mL 500 mL Btl (per mL) IV (09:52)
[2022-06-24] MEDS: cefTRIAXone 2,000 MG in sodium chloride 0.9% (plus) 50 ML 100 MG IV (10:19)
[2022-06-24] MEDS: perflutren protein-a microsphr 0.22 mg/mL SDV 3 mL IV (11:20)
[2022-06-24 11:49] LABS: Glucose Point of Care 135 mg/dL (70-110)
--- NOTE | 2022-06-24 14:15 | PM.PN ---
Subjective Subjective: No acute events overnight. Patient has remained afebrile. White count trending down. Denies any nausea vomiting, headache. Dressing changed as per podiatry team today. Patient did complain of blurry vision since today morning when he woke up. Patient stated symptoms started when he received a push of morphine overnight. He thinks it might be because morphine was pushed too fast. He does not complain of any other neurological weakness. No slurred speech or facial deviation. Vitals/I&O/Wt Last Vital Signs Temp 98.0 F 06/24/22 11:50 Pulse 70 06/24/22 11:50 Resp 17 06/24/22 11:50 BP 159/76 06/24/22 11:50 Pulse Ox 97 06/24/22 11:50 O2 Del Method 06/24/22 11:50 O2 Flow Rate 6 06/22/22 12:34 06/23/22 06/24/22 06/24/22 22:59 06:59 14:59 Intake Total 1660 / 1870 250 / 2120 580 / 580 Output Total 500 / 1000 300 / 1300 1250 / 1250 Balance 1160 / 870 -50 / 820 -670 / -670 Physical Exam Const: COMMON NORMALS: patient oriented x3 and alert GENERAL APPEARANCE: cooperative ORIENTATION/CONSCIOUSNESS: Yes awake HENMT: COMMON NORMALS: oropharynx normal Neck/C-Spine: COMMON NORMALS: no JVD Resp: COMMON NORMALS: normal respiratory effort and clear to auscultation bilaterally AUSCULTATION: clear to auscultation bilaterally Cardio: COMMON NORMALS: no JVD, regular rhythm, S1 normal heart sound present, S2 normal heart sound present and No murmurs present (Cardio) RHYTHM: regular rhythm HEART SOUNDS: S1 normal heart sound present and S2 normal heart sound present GI: COMMON NORMALS: Normal to inspection, nondistended, normoactive bowel sounds present, Soft to palpation and non-tender PALPATION: Yes Soft to palpation Extremity: COMMON NORMALS: no joint enlargement and no pedal edema OTHER: Swelling right hallux, distal medial right foot, with maceration lateral right hallux, between the toes, fissure on plantar surface between first and second toes with some crusted blood, clear drainage currently. Neuro: COMMON NORMALS: patient oriented x3 and moves all extremities SENSORIUM/ORIENTATION: Yes alert Skin: COMMON NORMALS: no rashes or lesions noted GENERAL SKIN EXAM: no rashes or lesions noted Data 06/24/22 04:47 06/24/22 04:47 Micro: Microbiology 06/22/22 12:20 Gram Stain - Final Toe - #1 Anaerobic Culture - Preliminary Abscess Culture - Preliminary Coag positive Staphylococcus 06/19/22 14:21 Blood Culture - Final Blood Staphylococcus aureus A&P Assessment and plan (1) Staphylococcus aureus bacteremia: MSSA. Secondary to soft tissue infection of great toe. Switch to IV ceftriaxone 2 g daily as per culture sensitivities. Repeat blood cultures so far have remained negative. Plan for PICC line today. We will plan to do IV antibiotics for overall 4 weeks since last positive blood culture. 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 Wound care, physical therapy as per podiatry team. Follow-up wound culture and blood culture. So far both growing MSSA. We will follow-up OR cultures. Appreciate podiatry recommendations. (3) Sepsis: Sepsis with improvement, improving leukocytosis, resolved tachycardia. Source is soft tissue infection of right foot. Blood cultures positive. Continue antibiotics as above. Lactic acidosis 2.4. No other endorgan dysfunction. (4) Type 2 diabetes mellitus: New diagnosis. A1c 9.5. Blood sugars better after adding Lantus. Continue Lantus 30 units daily. Insulin sliding scale at low-dose protocol. Plan to discharge on Lantus and OHA's on discharge. Consistent carbohydrate diet. Will also refer patient to manager drug safety as an outpatient. Qualifiers: Diabetes mellitus complication status: with hyperglycemia Diabetes mellitus ferry terminal agent insulin use: without ferry terminal agent use Qualified Code(s): E11.65 - Type 2 diabetes mellitus with hyperglycemia (5) Hyponatremia: Mild. Suspect secondary to sepsis. Reassess sodium. Liberalized sodium intake. (6) Diabetic peripheral neuropathy associated with type 2 diabetes mellitus: (7) Hypertension: Goal blood pressure less than 140/90 mmHg. New diagnosis. Given diabetes will prefer CHRISTAL/ARB. Uptitrate losartan to 50 mg oral daily. Will uptitrate according to blood pressure goals. (8) Dyslipidemia: Plan Blurred vision: Given bacteremia, hypertension, type 2 diabetes mellitus patient definitely is at a high risk of CVA. Check echocardiogram, CTA head and neck. Aspirin 81 mg daily, atorvastatin 80 mg daily. Full code. Heparin 5000 every 12 hourly for DVT prophylaxis Famotidine for PUD prophylaxis Carb consistent diet. Attestations Medical Necessity Statement*: Requires further hospitalization for management of MSSA bacteremia in setting of diabetic foot infection, new diagnosis of type 2 diabetes mellitus and hypertension while safe discharge planning is sought. 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
--- NOTE | 2022-06-24 15:20 | PC.NURSE ---
Left basilic midline placed for 4 weeks IV antibiotics as ordered. Good blood return. Flushes without difficulty. Pt tolerated well.
[2022-06-24] MEDS: aspirin 325 mg EC Tablet PO (15:38)
[2022-06-24 16:59] LABS: Glucose Point of Care 187 mg/dL (70-110)
[2022-06-24] MEDS: insulin lispro 100 unit/1 mL SUBCUT ×2 (17:27→21:22)
[2022-06-24] MEDS: atorvastatin 40 mg Tablet 80 MG PO (20:23)
[2022-06-24 20:58] LABS: Glucose Point of Care 193 mg/dL (70-110)
[2022-06-25] VITALS (9 sets, daily range): BP systolic 131–155; BP diastolic 76–92; PULSE 62–100; RESP 14–16; TEMP 36.4–36.8; O2SAT 92–100
[2022-06-25 04:35] LABS: Basophils % 0.4 %; Eosinophils # 0.4 10^3/uL (0.0-0.8); Eosinophils % 3.6 %; Hematocrit 39.1 % (42.0-52.0); Hemoglobin 12.8 g/dL (11.7-16.6); Lymphocytes # 2.1 10^3/uL (0.8-4.8); Lymphocytes % 21.8 %; Mean Corpuscular HGB Conc 32.7 g/dL (30.0-36.0); Mean Corpuscular Hemoglobin 28.9 pg (28.0-34.0); Mean Corpuscular Volume 88.3 fl (80-94); Mean Platelet Volume 9.4 fL (7.4-10.4); Monocytes % 10.6 %; Neutrophils # 5.98 10^3/uL (1.8-7.7); Neutrophils % 62.5 %; Nucleated Red Blood Cells % 0 %; Platelet Count 483 10^3/cmm (130-400); Red Blood Count 4.43 10^6/uL (4.1-5.3); Red Cell Distribution Width 11.7 % (12.1-15.1); White Blood Count 9.6 10^3/uL (4.0-10.0)
[2022-06-25 05:00] LABS: Alanine Aminotransferase 22 U/L (0-41); Alkaline Phosphatase 83 U/L (40-130); Anion Gap 11.8 (5-19); Blood Urea Nitrogen 16 mg/dL (6-20); Carbon Dioxide 28 mmol/L (22-29); Chloride 105 mmol/L (98-107); Globulin 3.3 g/dL (1.3-4.6); Glomerular Filtration Rate 99.3 mL/min (90-130); Glucose 158 mg/dL (65-115); Osmolality Calculated 296 mOsm/kg (285-295); Potassium 3.8 mmol/L (3.5-5.1); Sodium 141 mmol/L (136-145); Total Bilirubin 0.2 mg/dL (0.15-1.2); Total Protein 6.3 g/dL (6.6-8.7)
[2022-06-25 05:07] LABS: Aspartate Amino Transferase 23 U/L (0-40)
[2022-06-25] MEDS: heparin 5,000 unit/mL INJ 1 mL 5000 UNIT SUBCUT ×2 (06:23→17:14)
[2022-06-25] MEDS: insulin glargine 100 units/1 mL 30 UNIT SUBCUT (06:23)
[2022-06-25 06:41] LABS: Glucose Point of Care 165 mg/dL (70-110)
[2022-06-25] MEDS: ferrous gluconate 324 mg Tablet PO ×2 (08:13→17:11)
[2022-06-25] MEDS: aspirin 81 mg EC Tablet PO (08:13)
[2022-06-25] MEDS: losartan 50 mg Tablet PO (08:14)
[2022-06-25] MEDS: insulin lispro 100 unit/1 mL SUBCUT ×3 (08:14→17:11)
[2022-06-25] MEDS: cefTRIAXone 2,000 MG in sodium chloride 0.9% (plus) 50 ML 100 MG IV (09:59)
--- NOTE | 2022-06-25 10:23 | PC.NURSE ---
diabetes education provided to patient r/t diet, insulin administration. pt reports needing a glucometer for discharge.
[2022-06-25] MEDS: HYDROcodone-acetaminophen 5-325 mg Tablet 1 TAB PO ×2 (13:14→21:02)
--- NOTE | 2022-06-25 13:20 | P.PN_ITS ---
Subjective Subjective: No acute events overnight. Patient has remained hemodynamically stable and afebrile. Leukocytosis resolved. Patient is walking around the room with boot in place. States feeling a lot better. PICC line placed yesterday. Blurry vision has resolved. Vitals/I&O/Wt Last Vital Signs Temp 97.5 F L 06/25/22 11:33 Pulse 75 06/25/22 11:33 Resp 16 06/25/22 11:33 BP 132/80 06/25/22 11:33 Pulse Ox 100 06/25/22 11:33 O2 Del Method 06/25/22 11:33 O2 Flow Rate 6 06/22/22 12:34 06/24/22 06/25/22 06/25/22 22:59 06:59 14:59 Intake Total 290 / 290 Balance 290 / 290 Physical Exam Const: COMMON NORMALS: patient oriented x3 and alert GENERAL APPEARANCE: cooperative ORIENTATION/CONSCIOUSNESS: Yes awake HENMT: COMMON NORMALS: oropharynx normal Neck/C-Spine: COMMON NORMALS: no JVD Resp: COMMON NORMALS: normal respiratory effort and clear to auscultation bilaterally AUSCULTATION: clear to auscultation bilaterally Cardio: COMMON NORMALS: no JVD, regular rhythm, S1 normal heart sound present, S2 normal heart sound present and No murmurs present (Cardio) RHYTHM: regular rhythm HEART SOUNDS: S1 normal heart sound present and S2 normal heart sound present GI: COMMON NORMALS: Normal to inspection, nondistended, normoactive bowel sounds present, Soft to palpation and non-tender PALPATION: Yes Soft to palpation Extremity: COMMON NORMALS: no joint enlargement and no pedal edema OTHER: Foot surgically bandaged in boot. Neuro: COMMON NORMALS: patient oriented x3 and moves all extremities SENSORIUM/ORIENTATION: Yes alert Skin: COMMON NORMALS: no rashes or lesions noted GENERAL SKIN EXAM: no rashes or lesions noted Data 06/25/22 04:17 06/25/22 04:17 Micro: Microbiology 06/22/22 12:20 Gram Stain - Final Toe - #1 Anaerobic Culture - Preliminary Abscess Culture - Final Staphylococcus aureus 06/19/22 14:26 Blood Culture - Final Blood NO GROWTH AFTER 5 DAYS A&P Assessment and plan (1) Staphylococcus aureus bacteremia: MSSA. Secondary to soft tissue infection of great toe. Switch to IV ceftriaxone 2 g daily as per culture sensitivities. Repeat blood cultures so far have remained negative. Plan for PICC line today. We will plan to do IV antibiotics for overall 4 weeks since last positive blood culture. 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 Wound care, physical therapy as per podiatry team. Follow-up wound culture and blood culture. So far both growing MSSA. We will follow-up OR cultures. Appreciate podiatry recommendations. (3) Sepsis: Sepsis with improvement, improving leukocytosis, resolved tachycardia. Source is soft tissue infection of right foot. Blood cultures positive. Continue antibiotics as above. Lactic acidosis 2.4. No other endorgan dysfunction. (4) Type 2 diabetes mellitus: New diagnosis. A1c 9.5. Blood sugars better after adding Lantus. Continue Lantus 30 units daily. Insulin sliding scale at low-dose protocol. Plan to discharge on Lantus and OHA's on discharge. Consistent carbohydrate diet. Will also refer patient to social media marketer as an outpatient. Qualifiers: Diabetes mellitus complication status: with hyperglycemia Diabetes mellitus ocean transportation intermediary insulin use: without ocean transportation intermediary use Qualified Code(s): E11.65 - Type 2 diabetes mellitus with hyperglycemia (5) Hyponatremia: Mild. Suspect secondary to sepsis. Reassess sodium. Liberalized sodium intake. (6) Diabetic peripheral neuropathy associated with type 2 diabetes mellitus: (7) Hypertension: Goal blood pressure less than 140/90 mmHg. New diagnosis. Given diabetes will prefer CHRISTAL/ARB. Uptitrate losartan to 50 mg oral daily. Will uptitrate according to blood pressure goals. (8) Dyslipidemia: Plan Blurred vision: Given bacteremia, hypertension, type 2 diabetes mellitus patient definitely is at a high risk of CVA. Check echocardiogram, CTA head and neck. Aspirin 81 mg daily, atorvastatin 80 mg daily. Full code. Heparin 5000 every 12 hourly for DVT prophylaxis Famotidine for PUD prophylaxis Carb consistent diet. Plan for the day: Continue with IV ceftriaxone 2 g daily which he will need to take for next 4 w eeks. Antibiotics outpatient and physical therapy along with wound care is being arranged. Wound care as per Dr. Lincoln. We will try to get meds to bed. He will be on new medications including losar ofx, aspirin, statin, Lantus. Will add Januvia to discharge medication as well. Patient is to follow-up primary care provider as an outpatient for further monitoring of hypertension and newly diagnosed type 2 diabetes mellitus. Attestations Medical Necessity Statement*: Requires further hospitalization for management of MSSA bacteremia, diabetic foot ulcer with a new diagnosis of type 2 diabetes mellitus, hypertension while discharge planning is sought. 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
[2022-06-25 15:28] LABS: Glucose Point of Care 183 mg/dL (70-110)
[2022-06-25 16:49] LABS: Glucose Point of Care 249 mg/dL (70-110)
[2022-06-25] MEDS: atorvastatin 40 mg Tablet 80 MG PO (21:02)
[2022-06-25 21:37] LABS: Glucose Point of Care 147 mg/dL (70-110)
[2022-06-26 05:06] VITALS: BP 146/80; PULSE 64; RESP 16; TEMP 36.7; O2SAT 96
[2022-06-26 05:46] VITALS: BMI 22.6
[2022-06-26] MEDS: heparin 5,000 unit/mL INJ 1 mL 5000 UNIT SUBCUT (06:28)
[2022-06-26] MEDS: insulin glargine 100 units/1 mL 30 UNIT SUBCUT (06:29)
[2022-06-26] MEDS: HYDROcodone-acetaminophen 5-325 mg Tablet 1 TAB PO ×2 (06:33→13:31)
[2022-06-26 06:50] LABS: Glucose Point of Care 172 mg/dL (70-110)
[2022-06-26 08:00] VITALS: BP 146/84; PULSE 71; RESP 16; TEMP 36.6; O2SAT 98
[2022-06-26 08:15] VITALS: BP 146/84
[2022-06-26] MEDS: ferrous gluconate 324 mg Tablet PO (08:15)
[2022-06-26] MEDS: losartan 50 mg Tablet PO (08:15)
[2022-06-26] MEDS: aspirin 81 mg EC Tablet PO (08:15)
--- NOTE | 2022-06-26 08:36 | P.PN_ITS ---
Subjective Subjective: Patient is seen bedside this morning. He is 4 days status post incision and debridement right great toe diabetic foot ulcer. States his pain is being managed. Has some pain with dressing changes. Denies any acute events overnight. Patient denies any subjective nausea, vomiting, fever, chills, shortness of breath or chest pain. Vitals/I&O/Wt Last Vital Signs Temp 97.9 F 06/26/22 08:00 Pulse 71 06/26/22 08:00 Resp 16 06/26/22 08:00 BP 146/84 06/26/22 08:15 Pulse Ox 98 06/26/22 08:00 O2 Del Method 06/26/22 05:06 O2 Flow Rate 0 06/25/22 20:00 06/25/22 06/26/22 06/26/22 22:59 06:59 14:59 Intake Total 200 / 730 400 / 1130 Output Total 600 / 600 400 / 1000 Balance -400 / 130 0 / 130 Weight last 48 hrs Weight 149 lb 1 oz Physical Exam Narrative: GENERAL: Patient is alert and oriented ?3 and in no acute distress. The following is a focused bilateral lower extremity exam. VASCULAR: Dorsalis pedis palpable +2 left and right foot. Posterior tibial arteries palpable +2. Capillary refill time less than 3 seconds to the distal hallux bilaterally. Calf is supple and nontender proximally and distally. Pedal hair growth present. No edema to the lower extremities. NEUROLOGICAL: Protective sensation intact 0/10 sites, tested with [place] monofilament to bilateral feet. DERMATOLOGICAL: Wound at the medial aspect of the right great toe measures?3.5 cm x 3.9 cm x 0.4 cm. Wound does not probe to bone at the right great toe. Exposed flexor tendon. Improving periwound erythema. No purulent drainage from the wound. No malodor. No proximal lymphangitic streaking. MUSCULOSKELETAL: Tenderness palpation at the right great toe. Able to dorsiflex and plantarflex right great toe. Muscle strength is 5 out of 5 in all 3 cardinal planes to the bilateral foot and ankle. No crepitus with palpation of soft tissue to the right foot. 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 2 days status post incision and debridement right foot DOS 06/22/2022. Soft tissue infection with exposed flexor tendon right plantar hallux. * Right foot wound culture significant for MSSA * No leukocytosis, this a.m. * Nonweightbearing right foot, heel touch for transfers and offloading with cam boot. * Soft tissue ulceration showing clinical signs of improvement with decreased erythema, no purulent drainage. * Perform daily dressing change silver alginate, gauze, rolled gauze and Oniel wrap. * May rinse right foot wound with sterile saline, patient to avoid getting his right foot wet when bathing. * Okay for discharge/transfer from podiatry standpoint. * Anticipating daily IV antibiotic infusion at [facility] in conjunction with wound care dressing changes daily. * Recommend follow-up with wound care clinic after discharge. 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
[2022-06-26] MEDS: insulin lispro 100 unit/1 mL SUBCUT ×2 (08:45→12:33)
[2022-06-26] MEDS: cefTRIAXone 2,000 MG in sodium chloride 0.9% (plus) 50 ML 100 MG IV (10:56)
[2022-06-26 11:45] LABS: Glucose Point of Care 225 mg/dL (70-110)
[2022-06-26 11:54] VITALS: BP 137/76; PULSE 69; RESP 17; TEMP 36.4; O2SAT 99
--- NOTE | 2022-06-26 12:41 | PM.DCS ---
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 He then about a week ago stepped on a thorn on proximal plantar/lateral aspect of his right great toe which he removed.? Then about 4-5 days ago his toe and then proximal foot started swelling, having redness, and today he also started having bloody drainage.? He took amoxicillin that he had had left from the past for 3 days without improvement.? The foot is tender.? He had night sweats.? In ER he is tachycardic 96, afebrile, with leukocytosis 15.3.? Lactic acid 2.4. Foot x-ray without fracture, foreign body or advanced bone destruction. Blood glucose is noted 366.? Discussed with him he does not have history of diabetes, but states that he does eat quite a bit of sweets, including wart of honey in a week.? Hospital Course Hospital Course Patient was roomed to the hospital further evaluation of cellulitis and infected wound of the right great toe. He was found to have elevated blood sugars on admission and later found to have diabetes mellitus with A1c of more than 9. He was started on broad-spectrum antibiotics. Blood cultures and wound cultures came back positive for MSSA. As patient's wound did not improve and he persistently had leukocytosis podiatry was consulted and he underwent OR debridement of the wound after MRI was done which ruled out any abscess collection or osteomyelitis. Patient's hospitalization was otherwise unremarkable. He is to continue with IV ceftriaxone 2 g daily for next 4 weeks. Antibiotics has been set up as an outpatient. PICC line is placed. PICC line is to be removed after completion of antibiotic course. He is diskette CBC and CMP weekly while being on antibiotics. He is on multiple new medications for diabetes and high blood pressure along with hyperlipidemia. He is to take Lantus 30 units daily along with Januvia 100 mg daily for diabetes. He is on losartan 50 mg daily for high blood pressure. He is currently taking aspirin and atorvastatin as well. He is to follow-up with a primary care provider on set appointment. He is to continue following up with wound care for daily bandage changes. Physical Exam Const: COMMON NORMALS: patient oriented x3 and alert GENERAL APPEARANCE: cooperative ORIENTATION/CONSCIOUSNESS: Yes awake HENMT: COMMON NORMALS: oropharynx normal Neck/C-Spine: COMMON NORMALS: no JVD Resp: COMMON NORMALS: normal respiratory effort and clear to auscultation bilaterally AUSCULTATION: clear to auscultation bilaterally Cardio: COMMON NORMALS: no JVD, regular rhythm, S1 normal heart sound present, S2 normal heart sound present and No murmurs present (Cardio) RHYTHM: regular rhythm HEART SOUNDS: S1 normal heart sound present and S2 normal heart sound present GI: COMMON NORMALS: Normal to inspection, nondistended, normoactive bowel sounds present, Soft to palpation and non-tender PALPATION: Yes Soft to palpation Extremity: COMMON NORMALS: no joint enlargement and no pedal edema OTHER: Foot surgically bandaged in boot. Neuro: COMMON NORMALS: patient oriented x3 and moves all extremities SENSORIUM/ORIENTATION: Yes alert Skin: COMMON NORMALS: no rashes or lesions noted GENERAL SKIN EXAM: no rashes or lesions noted Discharge Data Studies Completed and Pending Completed Studies During Hospitalization Category Date Time Status CT angio headneck* [id number] Stat Cat Scan 06/24/22 08:[address] foot RT w con [id number] Stat Cat Scan 06/19/22 15:31 Completed XR foot RT min 3V* [id number] Stat Exams 06/19/22 14:12 Completed MR foot RT wo/w con [id number] Stat MRI 06/21/22 16:08 Completed CV. echo wo/w contrast [id number] Routine Ultrasound 06/24/22 09:01 Completed Pending at discharge Category Date Time Status Abscess Culture and Gram Stain Routine Lab 06/22/22 12:20 Results Anaerobic Culture Routine Lab 06/22/22 12:20 Results Blood Culture AM LABS Lab 06/22/22 06:05 Results Radiology Impressions Foot X-Ray 06/19/22 14:12 IMPRESSION: No evidence of radiopaque foreign body. Foot CT 06/19/22 15:31 IMPRESSION: Subcutaneous edema noted at the wound site with no definable abscess or radiopaque foreign body. Foot MRI 06/21/22 16:08 IMPRESSION: 1. No obvious MR evidence of osteomyelitis. 2. Soft tissue abnormalities as described above. Head/Neck CTA 06/24/22 08:30 IMPRESSION: Normal CTA head neck Microbiology 06/22/22 12:20 Toe - #1 Gram Stain - Final 06/22/22 12:20 Toe - #1 Anaerobic Culture - Preliminary 06/22/22 12:20 Toe - #1 Abscess Culture - Final Staphylococcus aureus 06/19/22 14:26 Blood Blood Culture - Final NO GROWTH AFTER 5 DAYS 06/19/22 14:21 Blood Blood Culture - Final Staphylococcus aureus 06/22/22 06:05 Blood Blood Culture - Preliminary NEGATIVE TO DATE 06/22/22 06:05 Blood Blood Culture - Preliminary NEGATIVE TO DATE 06/21/22 22:30 Nose MRSA Culture - Final 06/19/22 15:08 Toe - #1 Wound Culture - Final Staphylococcus aureus Laboratory Results WBC 9.6 10^3/uL (4.0-10.0) 06/25/22 04:17 RBC 4.43 10^6/uL (4.1-5.3) 06/25/22 04:17 Hgb 12.8 g/dL (11.7-16.6) 06/25/22 04:17 Hct 39.1 % (42.0-52.0) L 06/25/22 04:17 MCV 88.3 fl (80-94) 06/25/22 04:17 MCH 28.9 pg (28.0-34.0) 06/25/22 04:17 MCHC 32.7 g/dL (30.0-36.0) 06/25/22 04:17 RDW 11.7 % (12.1-15.1) L 06/25/22 04:17 Plt Count 483 10^3/cmm (130-400) H 06/25/22 04:17 MPV 9.4 fL (7.4-10.4) 06/25/22 04:17 Neut % (Auto) 62.5 % 06/25/22 04:17 Lymph % (Auto) 21.8 % 06/25/22 04:17 [place] % (Auto) 10.6 % 06/25/22 04:17 Eos % (Auto) 3.6 % 06/25/22 04:17 Baso % (Auto) 0.4 % 06/25/22 04:17 Neut # (Auto) 5.98 10^3/uL (1.8-7.7) 06/25/22 04:17 Lymph # (Auto) 2.1 10^3/uL (0.8-4.8) 06/25/22 04:17 [place] # (Auto) 1.0 10^3/uL (0.2-0.9) H 06/25/22 04:17 Eos # (Auto) 0.4 10^3/uL (0.0-0.8) 06/25/22 04:17 Baso # (Auto) 0.0 10^3/uL (0.0-0.1) 06/25/22 04:17 Nucleated RBC % (auto) 0 % 06/25/22 04:17 Nucleated RBCs # 0.0 /100WBC 06/25/22 04:17 Sodium 141 mmol/L (136-145) 06/25/22 04:17 Potassium 3.8 mmol/L (3.5-5.1) 06/25/22 04:17 Chloride 105 mmol/L (98-107) 06/25/22 04:17 Carbon Dioxide 28 mmol/L (22-29) 06/25/22 04:17 Anion Gap 11.8 (5-19) 06/25/22 04:17 BUN 16 mg/dL (6-20) 06/25/22 04:17 Creatinine 0.8 mg/dL (0.7-1.2) 06/25/22 04:17 GFR Calculation 99.3 mL/min (90-130) 06/25/22 04:17 Glucose 158 mg/dL (65-115) H 06/25/22 04:17 POC Glucose 225 mg/dL (70-110) H 06/26/22 11:21 Estimat Average Glucose 226 06/19/22 14:21 Hemoglobin A1c 9.5 % (4.0-6.0) H 06/19/22 14:21 Calculated Osmolality 296 mOsm/kg (285-295) H 06/25/22 04:17 Lactic Acid 2.4 mmol/L (0.5-2.2) H 06/19/22 14:21 Lactic Acid (Sepsis) 1.4 mmol/L (0.5-2.2) 06/19/22 18:59 Calcium 9.0 mg/dL (8.5-10.5) 06/25/22 04:17 Iron 29 ug/dL (59-158) L 06/21/22 01:54 TIBC 180 mcg/dl 06/21/22 01:54 % Saturation 16.1 % (20-50) L 06/21/22 01:54 Unsat Iron Binding 151 ug/dL (112-347) 06/21/22 01:54 Total Bilirubin 0.2 mg/dL (0.15-1.2) 06/25/22 04:17 AST 23 U/L (0-40) 06/25/22 04:17 ALT 22 U/L (0-41) 06/25/22 04:17 Alkaline Phosphatase 83 U/L (40-130) 06/25/22 04:17 Total Protein 6.3 g/dL (6.6-8.7) L 06/25/22 04:17 Albumin 3.0 g/dL (3.5-5.2) L 06/25/22 04:17 Globulin 3.3 g/dL (1.3-4.6) 06/25/22 04:17 Triglycerides 213 mg/dL (0-150) H 06/22/22 06:05 Cholesterol 211 mg/dL (0-200) H 06/22/22 06:05 LDL Cholesterol, Calc 139 mg/dL (50-129) H 06/22/22 06:05 Total VLDL Cholesterol 43 mg/dL (0-30) H 06/22/22 06:05 HDL Cholesterol 29 mg/dL (60-100) L 06/22/22 06:05 Cholesterol/HDL Ratio 7.28 mg/dL (1.0-5.00) H 06/22/22 06:05 Vitamin B12 389 pg/mL (232-1245) 06/21/22 01:54 Folate 7.0 ng/mL (4.5-32.2) 06/21/22 01:54 Procalcitonin 0.27 ng/mL (0-0.5) 06/21/22 01:54 TSH 0.38 uIU/mL (0.27-4.20) 06/21/22 01:54 Urine Color Yellow (Yellow) 06/21/22 22:45 Urine Appearance Clear (CLEAR) 06/21/22 22:45 Urine pH 5 (5-7) 06/21/22 22:45 Ur Specific [place] 1.020 (1.005-1.030) 06/21/22 22:45 Urine Protein 1+ (Negative) H 06/21/22 22:45 Urine Glucose (UA) 4+ (Normal) H 06/21/22 22:45 Urine Ketones Negative (Negative) 06/21/22 22:45 Urine Blood 2+ (Negative) H 06/21/22 22:45 Urine Nitrate Negative (Negative) 06/21/22 22:45 Urine Bilirubin Neg (Negative) 06/21/22 22:45 Urine Urobilinogen Norm mg/dL (Negative) 06/21/22 22:45 Ur Leukocyte Esterase Negative (Negative) 06/21/22 22:45 Urine RBC 10-15 /hpf (0-2) H 06/21/22 22:45 Urine WBC None /hpf (0-5) 06/21/22 22:45 Ur Squamous Epith Cells None /hpf (0-5) 06/21/22 22:45 Amorphous Sediment 1+ /hpf 06/21/22 22:45 Urine Bacteria None /hpf (NONE) 06/21/22 22:45 Vancomycin Trough 10.9 ug/mL (10-15) 06/23/22 14:39 Vitals Last Vital Signs Temp 97.6 F 06/26/22 11:54 Pulse 69 06/26/22 11:54 Resp 17 06/26/22 11:54 BP 137/76 06/26/22 11:54 Pulse Ox 99 06/26/22 11:54 O2 Del Method 06/26/22 05:06 O2 Flow Rate 0 06/25/22 20:00 Discharge Plan Discharge Patient Disposition: Home Condition: Stable Prescriptions: New losartan 50 mg Tablet 50 mg PO DAILY Qty: 30 0RF atorvastatin 40 mg Tablet 80 mg PO BEDTIME Qty: 30 0RF aspirin 81 mg Tablet,Delayed Release (Dr/Ec) 81 mg PO DAILY Qty: 30 0RF ferrous gluconate 324 mg (37.5 mg iron) Tablet 324 mg PO BIDWM Qty: 60 0RF [place]jag[place] AdamsikPen U-100 Insulin 100 unit/mL (3 mL) insulin pen 30 unit SUBCUT DAILY Qty: 15 0RF Januvia 100 mg tablet 100 mg PO DAILY Qty: 30 0RF Discharge Orders: Discharge Order (Routine); Ordered 06/26/22 Ordered By: Jamari Morrison Other Ambulatory Orders: Comprehensive Metabolic Panel (Routine) Timeframe: 1 Week Location: Determined by Patient Ordered By: Jamari Morrison Complete Blood Count w/Auto (Routine) Timeframe: 1 Week Location: Patient Preference Ordered By: Jamari Morrison DME: Walker (Order) Location: None Selected Ordered By: Jamari Morrison Miscellaneous Procedure (Order) Timeframe: 1 Day Location: Determined by Patient Ordered By: Damian Lincoln Miscellaneous Procedure (Order) Timeframe: 1 Week Location: Determined by Patient Ordered By: Jamari Morrison Referrals: [facility] [Other] - 06/29/22 2:00 pm (You have a new patient/hospital follow up with Concepcion Quiroz on June 29 at 2:00p.m.. They ask that you arrive early to fill out paperwork or can stop by on your way home to pick it up and bring it back to your appointment filled out. If you want to fill it out the day of please arrive atleast 330 minutes early. If you have any questions or need to reschedule please contact the clinic at [phone].) [facility] [Outside] - 06/27/22 11:00 am (You are to go to the ER and tell them you are there for IV abxs and Dressing Change. They will get you registered and then they will get you back for the abxs and dressing change. ) Damian Lincoln DPM [Physician] - 2 weeks (Please call Thursday 06/28 to schedule an appointment with Dr. Lincoln. ) [facility] [Staff Physician] - 07/01/22 2:00 pm Discharge Diet: Cardiac and Diabetic Discharge Activity: Resume usual activity and Increase activity as tolerated Patient Instructions: Opioid Safety Activity Restrictions/Additional Instructions: Please follow-up at [facility] daily for IV ceftriaxone for next 4 weeks. You will need to have CBC and CMP done weekly. Please follow-up with a primary care provider on the set appointment. Please take insulin/Lantus 30 units daily. Along with that Januvia is another diabetes medication which should be taken orally daily. Follow-up blood pressure you will be on losartan 50 mg daily. Recheck HbA1c in 6 months along with lipid panel. Continue following up with wound care and Dr. Lincoln with podiatry. Wound care is to be done daily with daily bandage changes with the IV antibiotics. PICC line dressings to be done weekly. PICC line is to be removed after completion of IV antibiotic course. Discharge Attestations Time Spent in Discharge Care*: greater than 30 min Specific Discharge Activities: educating patient, educating and/or supporting family/caregiver, discussing with pcp/other providers, discussing with special education case manager/social workers/dc planners, documenting/other paperwork and evaluating patient/reviewing data Status at Discharge: Cognitive status at discharge: cognitively intact, Behavioral status at discharge: cooperative, Functional status at discharge: uses cane/walker, Overall status at discharge: patient is progressing back to baseline Quality Metrics Clinical Quality Measures [ No reported AMI, CVA or VTE this stay] Coding Level of Care Code Acute [facility] note Diagnoses Diabetic peripheral neuropathy associated with type 2 diabetes mellitus E11.42 Staphylococcus aureus bacteremia R78.81; B95.61 Sepsis A41.9 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
[2022-06-26 14:29] VITALS: BP 137/76; PULSE 69; RESP 17; TEMP 36.4; O2SAT 99
== END 2022-06-26 14:30 | disposition home or self-care (01) | DRG 854 ==
LOC: ER 15:35 → MEDSURG 18:20
PROVIDERS: Podiatrist Foot & Ankle Surgery; Admitting Provider Internal Medicine; Emergency Provider Family Medicine; Visit Provider Student in an Organized Health Care Education/Training Program
PROC: 0LBV0ZZ Excision of Right Foot Tendon, Open Approach (ICD-10-PCS; principal; 2022-06-22 12:00)
DX: A41.9 Sepsis, unspecified organism (principal); E87.1 Hypo-osmolality and hyponatremia; B95.61 Methicillin susceptible Staphylococcus aureus infection as the cause of diseases classified elsewhere; E11.42 Type 2 diabetes mellitus with diabetic polyneuropathy; E11.65 Type 2 diabetes mellitus with hyperglycemia; E11.621 Type 2 diabetes mellitus with foot ulcer; L97.513 Non-pressure chronic ulcer of other part of right foot with necrosis of muscle; I10 Essential (primary) hypertension; E78.5 Hyperlipidemia, unspecified; H53.8 Other visual disturbances
CPT/HCPCS: 36415; 36416; 36569; 70496; 70498; 73630; 73701; 73720; 80048; 80053; 80061; 80202; 81001; 81003; 82607; 82746; 82962; 83036; 83540; 83550; 83605; 84145; 84443; 85025; 87040; 87070; 87075; 87077; 87150; 87186; 87205; 87641; 96365; 96367; 96372; 97760; 99285; A9577; C1751; C8929; J0692; J0696; J1644; J1815; J2250; J2270; J2405; J2543; J2704; J3010; J3370; J3490; J7030; J7050; L4361; Q9956; Q9967

== ENCOUNTER 2022-08-20 09:59 | Emergency (ER) | payer MEDICAID, SELFPAY ==
[2022-08-20] VITALS (7 sets, daily range): BP systolic 138–196; BP diastolic 81–113; PULSE 79–94; RESP 16–18; TEMP 36.2; O2SAT 95–100
--- NOTE | 2022-08-20 10:07 | W.ED.EYEPROB ---
HPI - Eye Problem General: Chief complaint: Eye Problems Stated complaint: right eye/head pain Time Seen by Provider: 08/20/22 10:00 Source: patient Mode of arrival: ambulatory Limitations: no limitations History of Present Illness: Patient is a 57-year-old male who presents to ED today with a complaint of right eye/temporal pain and severe headache. Patient was apparently seen at a clinic in [place] where an ambulance was called to bring him to the emergency department. Patient tells me that he had some type of procedure performed to his right eye by Dr. Ramos on Tuesday. He felt like he was doing okay until yesterday evening when he began developing pain around his right temporal region. He is also complained of feeling disoriented . Blood pressure upon arrival was 196/113. Patient states he takes Losartan daily for his blood pressure but feels it persistently elevated. Patient is not having any visual loss or blurry vision. He has not had any discharge from the eye. Of note I contacted Dr. Ramos immediately upon patient arrival who stated he did an eye injection on Tuesday. He did not feel symptoms were most likely related to the procedure but did ask me to perform eye pressures. MD chief complaint: eye pain Onset (ago): day(s) Onset description: gradual Duration: constant Location: right eye Eye Symptoms: pain Place: home Mechanism: other (recent surgery by Dr. Ramos) Associated symptoms: Reports headache(s); Denies fever(s), nausea, neck pain or vomiting Review of Systems Const: Denies: fever(s), chills, body aches, fatigue or malaise Eyes: Reports: eye discomfort and eye redness; Denies: change in vision, blurry vision, blind spots, photophobia, eye discharge, floaters or seeing flashes Card: Denies: chest pain Resp: Denies: dyspnea GI: Denies: abdominal pain, nausea or vomiting Musc: Denies: neck pain or back pain Skin/Breast: Denies: rash Neuro: Reports: headache(s) and confusion; Denies: numbness in extremities, weakness in extremities, sensory changes, difficulty walking, frequent falls, dizziness, vertigo or Slurred speech present [facility] ED PFSH: Medical History 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 Physical Exam Const: COMMON NORMALS: average body habitus, patient oriented x3, no limitations, healthy appearing, alert and well nourished GENERAL APPEARANCE: cooperative and in distress (appears uncomfortable secondary to pain) ORIENTATION/CONSCIOUSNESS: Yes awake, Yes oriented to person, Yes oriented to place and Yes oriented to time HENMT: COMMON NORMALS: normocephalic, atraumatic and Normal external nose present HEAD & SCALP: normal to inspection, normocephalic and atraumatic FACE & SINUS: normal facial exam NOSE: Normal external nose present Eye: COMMON NORMALS: Equal, round and reactive pupils present, EOMs intact bilaterally and normal visual rodriguez by confrontation GENERAL EYE: normal light reflex VISUAL ACUITY: Yes acuity normal VISUAL RODRIGUEZ: No peripheral vision loss and No central vision loss ALIGNMENT: Yes alignment normal PERIORBITAL: periorbital findings normal EYELID: eyelids normal CONJUNCTIVA: Yes other (R lateral subconjuntival hemorrhage-Dr. Ramos' stated this was normal) PUPIL: Yes Equal, round and reactive pupils present DIRECT OPHTHALMOSCOPY: Yes normal light reflex OTHER: eye pressures-13mmHg in L eye, 15mmHg in R eye Neck/C-Spine: COMMON NORMALS: full ROM, no lymphadenopathy and no meningeal signs Resp: COMMON NORMALS: normal respiratory effort and clear to auscultation bilaterally AUSCULTATION: clear to auscultation bilaterally Cardio: COMMON NORMALS: regular rate and regular rhythm RATE: regular rate RHYTHM: regular rhythm Neuro: KAMRAN COMA SCALE: document GCS findings [place] coma scale eye opening: Spontaneous Kamran coma scale verbal response: Orientated [place] coma scale motor response: Obey commands [place] coma scale total score: 15 COMMON NORMALS: patient oriented x3, CN's II-XII intact bilaterally, moves all extremities, no focal motor deficits and no sensory deficits noted SENSORIUM/ORIENTATION: Yes alert, Yes oriented to person, Yes oriented to place and Yes oriented to time MENINGEAL SIGNS: Yes no meningeal signs SPEECH: speech normal Skin: COMMON NORMALS: no rashes or lesions noted GENERAL SKIN EXAM: no rashes or lesions noted Course Consultations: Consultation #1: Dr. Ramos-felt like symptoms probably were not related to recent eye injection but wanted me to perform eye pressures; stated subconjunctival hemorrhage was normal following injection Vital Signs: Vital signs: Vital Signs Temperature 97.2 F L 08/20/22 10:00 Pulse Rate 94 08/20/22 13:30 Respiratory Rate 17 08/20/22 13:30 Blood Pressure 138/83 08/20/22 13:30 Pulse Oximetry 99 08/20/22 13:30 Oxygen Delivery Me thod 08/20/22 13:30 MDM - Eye Problem Medical Decision Making Blood pressure much improved while here. I did speak to Dr. Ramos who did not feel pain would be secondary to the injection that he performed on Tuesday. He did recommend to check eye pressures. These were normal. Patient was given IV medications for headache which did improve his symptoms. Labs are unremarkable. He has no neurologic deficits/complaints. No visual loss or changes. No neck pain, stiffness, fevers. Return ED precautions given. Patient states his blood pressure is often high at home. We will increase his losartan dose and recommend he keep a blood pressure log so PCP can change medications as needed. Lab Data 08/20/22 10:20 08/20/22 10:[address] 08/20/22 10:13 IMPRESSION: 1. No evidence of intracranial hemorrhage or mass effect. 2. No acute intracranial findings. Laboratory Results WBC 10.2 10^3/uL (4.0-10.0) H 08/20/22 10:20 RBC 4.60 10^6/uL (4.1-5.3) 08/20/22 10:20 Hgb 13.1 g/dL (11.7-16.6) 08/20/22 10:20 Hct 39.7 % (42.0-52.0) L 08/20/22 10:20 MCV 86.3 fl (80-94) 08/20/22 10:20 MCH 28.5 pg (28.0-34.0) 08/20/22 10:20 MCHC 33.0 g/dL (30.0-36.0) 08/20/22 10:20 RDW 13.0 % (12.1-15.1) 08/20/22 10:20 Plt Count 246 10^3/cmm (130-400) 08/20/22 10:20 MPV 10.3 fL (7.4-10.4) 08/20/22 10:20 Neut % (Auto) 78.7 % 08/20/22 10:20 Lymph % (Auto) 15.4 % 08/20/22 10:20 [place] % (Auto) 4.4 % 08/20/22 10:20 Eos % (Auto) 0.7 % 08/20/22 10:20 Baso % (Auto) 0.4 % 08/20/22 10:20 Neut # (Auto) 8.02 10^3/uL (1.8-7.7) H 08/20/22 10:20 Lymph # (Auto) 1.6 10^3/uL (0.8-4.8) 08/20/22 10:20 [place] # (Auto) 0.5 10^3/uL (0.2-0.9) 08/20/22 10:20 Eos # (Auto) 0.1 10^3/uL (0.0-0.8) 08/20/22 10:20 Baso # (Auto) 0.0 10^3/uL (0.0-0.1) 08/20/22 10:20 Nucleated RBC % (auto) 0 % 08/20/22 10:20 Nucleated RBCs # 0.0 /100WBC 08/20/22 10:20 Sodium 136 mmol/L (136-145) 08/20/22 10:20 Potassium 4.0 mmol/L (3.5-5.1) 08/20/22 10:20 Chloride 100 mmol/L (98-107) 08/20/22 10:20 Carbon Dioxide 20 mmol/L (22-29) L 08/20/22 10:20 Anion Gap 20.0 (5-19) H 08/20/22 10:20 BUN 15 mg/dL (6-20) 08/20/22 10:20 Creatinine 0.7 mg/dL (0.7-1.2) 08/20/22 10:20 GFR Calculation 115.8 mL/min (90-130) 08/20/22 10:20 Glucose 141 mg/dL (65-115) H 08/20/22 10:20 Calculated Osmolality 285 mOsm/kg (285-295) 08/20/22 10:20 Calcium 9.1 mg/dL (8.5-10.5) 08/20/22 10:20 Total Bilirubin 0.4 mg/dL (0.15-1.2) 08/20/22 10:20 AST 14 U/L (0-40) 08/20/22 10:20 ALT 22 U/L (0-41) 08/20/22 10:20 Alkaline Phosphatase 89 U/L (40-130) 08/20/22 10:20 Total Protein 7.0 g/dL (6.6-8.7) 08/20/22 10:20 Albumin 4.0 g/dL (3.5-5.2) 08/20/22 10:20 Globulin 3.0 g/dL (1.3-4.6) 08/20/22 10:20 Discharge Plan Discharge Patient Disposition: Home Clinical Impression: Headache Qualifiers: Headache type: unspecified Headache chronicity pattern: acute headache Intractability: not intractable Qualified Code(s): R51.9 - Headache, unspecified Hypertension Qualifiers: Hypertension type: primary hypertension Qualified Code(s): I10 - Essential (primary) hypertension Condition: Stable Prescriptions: New losartan 100 mg tablet 100 mg PO DAILY Qty: 30 0RF No Action losartan 50 mg Tablet 50 mg PO DAILY Qty: 30 0RF atorvastatin 40 mg Tablet 80 mg PO BEDTIME Qty: 30 0RF aspirin 81 mg Tablet,Delayed Release (Dr/Ec) 81 mg PO DAILY Qty: 30 0RF ferrous gluconate 324 mg (37.5 mg iron) Tablet 324 mg PO BIDWM Qty: 60 0RF insulin glargine [Basaglar KwikPen U-100 Insulin] 100 unit/mL (3 mL) insulin pen 30 unit SUBCUT DAILY Qty: 15 0RF Januvia 100 mg tablet 100 mg PO DAILY Qty: 30 0RF Discharge Orders: Discharge ED (Routine); Ordered 08/20/22 Ordered By: Heather Melvin Activity Restrictions/Additional Instructions: You need to follow-up with Dr. Ramos as scheduled. I am increasing your dose of losartan in hopes of better control for your blood pressure. You need to keep a detailed blood pressure log and follow-up with primary care so they can adjust medications based on these readings. You need to return to the emergency department for return of or severe headache, repetitive episodes of vomiting, fevers, visual loss or visual changes, or any other concerns you may have. Coding Level of Care Code ED Service Desk Agent for Luiza Wallace
--- NOTE | 2022-08-20 10:13 | CT_ITS ---
WS: [id number] CT HEAD TECHNIQUE: Noncontrast CT of the head obtained from the skullbase to the vertex. CLINICAL INFORMATION: WALKER, R periorbital pain, disoriented; severe HTN COMPARISON: None. DLP: 1059.[address] scans at [facility] use at least one of these dose optimization techniques: automated e xposure control; mA and/or kV adjustment per patient size (includes targeted exams where dose is matc hed to clinical indication); or iterative reconstruction. FINDINGS: No evidence of intracranial hemorrhage or mass effect. Ventricular system and basal cisterns are myrick nt. Mild small vessel changes with mild parenchymal volume loss. No extra-axial fluid collections. No evidence of mass or mass effect. Vascular calcification. Paranasal sinuses and mastoid air cells are well aerated. .Normal visualized soft tissues. CT/CT head wo con* [id number] IMPRESSION: 1. No evidence of intracranial hemorrhage or mass effect. 2. No acute intracranial findings.
[2022-08-20] MEDS: hyDRALAzine 20 mg/mL INJ 1 mL 10 MG IVP (10:17)
[2022-08-20 10:27] LABS: Basophils % 0.4 %; Eosinophils # 0.1 10^3/uL (0.0-0.8); Eosinophils % 0.7 %; Hematocrit 39.7 % (42.0-52.0); Hemoglobin 13.1 g/dL (11.7-16.6); Lymphocytes # 1.6 10^3/uL (0.8-4.8); Lymphocytes % 15.4 %; Mean Corpuscular Hemoglobin 28.5 pg (28.0-34.0); Mean Corpuscular Volume 86.3 fl (80-94); Mean Platelet Volume 10.3 fL (7.4-10.4); Monocytes # 0.5 10^3/uL (0.2-0.9); Monocytes % 4.4 %; Neutrophils # 8.02 10^3/uL (1.8-7.7); Neutrophils % 78.7 %; Nucleated Red Blood Cells % 0 %; Platelet Count 246 10^3/cmm (130-400); White Blood Count 10.2 10^3/uL (4.0-10.0)
[2022-08-20] MEDS: ondansetron 2 mg/ML SDV 2 mL 4 MG IVP (10:31)
[2022-08-20 10:44] LABS: Alanine Aminotransferase 22 U/L (0-41); Alkaline Phosphatase 89 U/L (40-130); Aspartate Amino Transferase 14 U/L (0-40); Blood Urea Nitrogen 15 mg/dL (6-20); Calcium 9.1 mg/dL (8.5-10.5); Carbon Dioxide 20 mmol/L (22-29); Chloride 100 mmol/L (98-107); Glomerular Filtration Rate 115.8 mL/min (90-130); Glucose 141 mg/dL (65-115); Osmolality Calculated 285 mOsm/kg (285-295); Sodium 136 mmol/L (136-145); Total Bilirubin 0.4 mg/dL (0.15-1.2)
[2022-08-20] MEDS: ketorolac 30 mg/mL INJ 15 MG IVP (10:44)
[2022-08-20] MEDS: dexamethasone 10 mg/mL INJ 6 MG IVP (10:44)
[2022-08-20] MEDS: diphenhydrAMINE 50 mg/mL SDV 1mL 25 MG IVP (10:44)
[2022-08-20] MEDS: valproic acid inj 500 MG in sodium chloride 0.9% 50 ML 55 MG IV (12:44)
[2022-08-20] MEDS: dihydroergotamine 1 mg/mL Inj IVP (13:55)
[2022-08-20] MEDS: metoclopramide 5 mg/mL SDV 2 mL 10 MG IVP (13:56)
== END 2022-08-20 14:33 | disposition home or self-care (01) ==
PROVIDERS: Emergency Provider Physician Assistant
DX: R51.9 Headache, unspecified (principal); I10 Essential (primary) hypertension; Z79.82 Long term (current) use of aspirin; Z79.4 Long term (current) use of insulin; E11.9 Type 2 diabetes mellitus without complications; E78.5 Hyperlipidemia, unspecified
CPT/HCPCS: 70450; 80053; 85025; 96365; 96375; 99285; J0360; J1100; J1110; J1200; J1885; J2405; J2765; J3490

== ENCOUNTER 2023-08-29 15:55 | Emergency (ER) | payer MEDICAID, SELFPAY ==
--- NOTE | 2023-08-29 15:56 | ECG_ITS ---
[facility] Test Date: 2023-08-29 Pat Name: Aaron Salas Department: Room: Gender: Male Web Content Producer: : [id number] Requested By: Julio Cesar Santamaria Order Number: [id number] Celeste MD: Steffen Lentz M.D. Measurements Intervals [place] Rate: 84 P: 47 [place]: 216 QRS: -17 QRSD: 110 T: 63 QT: 379 QTc: 448 Interpretive Statements SINUS RHYTHM WITH FIRST DEGREE AV BLOCK INCOMPLETE RIGHT BUNDLE BRANCH BLOCK [90+ ms QRS DURATION, TERMINAL R IN V1/V2, 40+ ms S IN I/aVL/V4/V5/V6] No previous ECG available for comparison Electronically Signed On 08-29-2023 17:06:43 TRAIN EXAMINER by Steffen Lentz M.D. [id number]
--- NOTE | 2023-08-29 15:56 | CTR_ITS ---
PROCEDURE INFORMATION: Exam: CT Head Without Contrast Exam date and time: 08/29/2023 3:58 PM Age: 58 years old Clinical indication: Lt lower extremity weakness; Additional info: Symptoms of acute stroke TECHNIQUE: Imaging protocol: Computed tomography of the head without contrast. Other technique: STROKE PROTOCOL was implemented. COMPARISON: CT head wo con* [id number] 08/20/2022 10:23 AM RADIATION DOSE METRICS: Total DLP (mGy-cm): 1103 FINDINGS: Brain: No midline shsift. The ventricular system is open. The cerebral sulci are not effaced. Within the brain parenchyma, no acute intra-axial hemorrhage is identified. No definite focus of abnormal attenuation is identified. No extra-axial fluid collection is apparent. Cerebral ventricles: No Hydrocephalus. Paranasal sinuses: Visualized paranasal sinuses are clear. Mastoid air cells: Visualized mastoid air cells are clear. Bones/joints: No acute osseous abnormality Identified. Soft tissues: No acute abnormality identified. Notes: Please note CT does not detect all acute ischemic abnormalities; if indicated, consider MRI with diffusion, or follow-up Head CT CT/CT head thrombolytic [id number] IMPRESSION: 1. Unremarkable noncontrast head CT. No evidence of acute intracranial hemorrhage or mass effect. ASSESSMENT: ASPECTS ([place] Stroke Program Early CT Score) is 10.
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
[2023-08-29 16:08] LABS: Basophils # 0.1 10^3/uL (0.0-0.1); Basophils % 0.5 %; Eosinophils # 0.1 10^3/uL (0.0-0.8); Eosinophils % 0.7 %; Lymphocytes # 1.3 10^3/uL (0.8-4.8); Lymphocytes % 14.2 %; Mean Corpuscular HGB Conc 33.9 g/dL (30-55); Mean Corpuscular Hemoglobin 28.7 pg (27-33); Mean Corpuscular Volume 84.4 fl (82-101); Mean Platelet Volume 10.5 fL (7.4-10.4); Monocytes # 0.7 10^3/uL (0.2-0.9); Monocytes % 7.5 %; Neutrophils # 7.22 10^3/uL (1.8-7.7); Neutrophils % 76.8 %; Nucleated Red Blood Cells % 0 %; Platelet Count 272 10^3/cmm (157-399); Red Cell Distribution Width 12.7 % (12.1-15.1); White Blood Count 9.42 10^3/uL (3.29-11.43)
[2023-08-29 16:17] VITALS: BP 212/121; PULSE 84; RESP 18; O2SAT 99
[2023-08-29 16:33] LABS: Alanine Aminotransferase 28 U/L (0-41); Albumin Level 3.8 g/dL (3.5-5.2); Alkaline Phosphatase 89 U/L (40-130); Anion Gap 18.4 (5-19); Aspartate Amino Transferase 39 U/L (0-40); Blood Urea Nitrogen 25 mg/dL (6-20); Calcium 9.1 mg/dL (8.5-10.5); Carbon Dioxide 23 mmol/L (22-29); Chloride 100 mmol/L (98-107); Glomerular Filtration Rate 56.5 mL/min (90-130); Glucose 158 mg/dL (65-115); Osmolality Calculated 292 mOsm/kg (285-295); Potassium 4.4 mmol/L (3.5-5.1); Sodium 137 mmol/L (136-145); Total Bilirubin 0.3 mg/dL (0.15-1.2); Total Protein 6.8 g/dL (6.6-8.7)
[2023-08-29 16:46] LABS: Add Urine Microscopic? YES; Bilirubin Urine Neg (Negative); Blood Urine 3+ (Negative); Glucose Urine UA 1+ (Normal); Ketones Urine 1+ (Negative); Leukocyte Esterase Urine Negative (Negative); Nitrate Urine Negative (Negative); Protein Urine 3+ (Negative); Urine Appearance Clear (CLEAR); Urine Color Yellow (Yellow); Urobilinogen Urine Norm (Negative); WBC Urine RARE /hpf (0-5); pH Urine 7 (5-7)
[2023-08-29 16:47] LABS: Add Urine Culture? No; Bacteria Urine TRACE /hpf
--- NOTE | 2023-08-29 16:47 | PC.PHAR ---
PT STATES TAKES NO OTHER MEDICATIONS EXCEPT LOSARTAN 50 MG DAILY. 08/29/23
[2023-08-29 16:48] LABS: Amphetamines Screen Urine Negative (Negative); Barbiturates Screen Urine Negative (Negative); Benzodiazepines Screen Urine Negative (Negative); Cocaine Screen Urine Negative (Negative); Opiate Screen Urine Negative (Negative); PCP Screen Urine Negative (Negative); THC Screen Urine Negative (Negative)
[2023-08-29 16:57] LABS: INR 0.88 (0.8-1.2)
[2023-08-29] MEDS: labetalol 5 mg/mL SDV 20mL 10 MG IVP (17:16)
[2023-08-29 17:17] VITALS: BP 158/97
[2023-08-29 17:38] VITALS: BP 162/97
--- NOTE | 2023-08-31 07:50 | DCPLANNER ---
Message sent to Cardiology for follow up - holter monitor
--- NOTE | 2023-08-31 07:53 | DCPLANNER ---
Message sent to [facility] to establish PCP.
--- NOTE | 2023-09-14 09:54 | DCPLANNER ---
Reached out to [facility] today - They have tried multiple times to contact patient to set up PCP- Patient does not have VM-
== END 2023-08-29 18:21 | disposition home or self-care (01) ==
PROVIDERS: Emergency Provider Family Medicine
DX: G45.9 Transient cerebral ischemic attack, unspecified (principal); E78.5 Hyperlipidemia, unspecified; I10 Essential (primary) hypertension; E11.42 Type 2 diabetes mellitus with diabetic polyneuropathy
CPT/HCPCS: 36415; 70450; 80053; 80306; 81001; 85025; 85610; 85730; 93005; 96374; 99285; J3490

== ENCOUNTER 2024-10-12 16:09 | Emergency (ER) | payer MEDICAID, SELFPAY ==
[2024-10-12] VITALS (10 sets, daily range): BP systolic 133–193; BP diastolic 75–99; PULSE 68–89; RESP 14–25; TEMP 36.6; O2SAT 95–100; BMI 22.8
[2024-10-12 16:57] LABS: Basophils # 0.1 10^3/uL (0.0-0.1); Basophils % 0.8 %; Eosinophils # 0.3 10^3/uL (0.0-0.8); Eosinophils % 3.4 %; Hematocrit 34.2 % (37-53); Lymphocytes % 13.1 %; Mean Corpuscular HGB Conc 31.9 g/dL (30-55); Mean Corpuscular Hemoglobin 28.4 pg (27-33); Mean Corpuscular Volume 89.1 fl (82-101); Mean Platelet Volume 9.4 fL (7.4-10.4); Monocytes # 0.6 10^3/uL (0.2-0.9); Monocytes % 7.8 %; Neutrophils # 5.69 10^3/uL (1.8-7.7); Neutrophils % 74.8 %; Nucleated Red Blood Cells % 0 %; Platelet Count 253 10^3/cmm (157-399); Red Blood Count 3.84 10^6/uL (3.85-5.65); Red Cell Distribution Width 13.5 % (12.1-15.1); White Blood Count 7.61 10^3/uL (3.29-11.43)
--- NOTE | 2024-10-12 17:10 | ED_ITS ---
HPI - General Adult 2 General: Chief complaint: General Medical Stated complaint: hypertension Time Seen by Provider: 10/12/24 16:15 History of Present Illness: Patient presents to the ER from EMS with initial blood pressure of 210/100 with blurred vision. Patient reports his blood pressure usually runs in the 140s up until about 4 days ago when he ate Irish food and has been battling his blood pressure ever since. Patient did take a total of 80 mg lisinopril today and his blood pressure stayed high. Patient states when he his blood pressure gets high he has blurred vision which is normal. Patient denies any chest pain shortness of breath or other symptomatology. Patient did receive 20 mg of labetalol per EMS and this did bring his blood pressure down to approximately 180/97. Related Data Previous Rx's ?Medication ?Instructions ?Recorded aspirin 81 mg tablet,delayed 81 mg PO DAILY #30 tabs 0 08/29/23 release atorvastatin 40 mg tablet 40 mg PO DAILY #30 tabs 08/11 04/03 lisinopril 20 mg tablet 20 mg PO .morning #90 tabs 0 10/09/24 lisinopril 40 mg tablet 40 mg PO .evening #90 tabs 0 10/09/24 clonidine HCl 0.1 mg tablet 0.1 mg PO QID PRN Blood pr essure 10/12/24 greater than 160/90 #30 tabs Allergies Allergy/AdvReac Type Severity Reaction Status Date / Time No Known Allergies Allergy Verified 10/12/24 16:22 Review of Systems 2 General: Reports: 10 or more systems reviewed and unremarkable except in HPI and below PFSH ED 2 PFSH: Medical History Hypertensive crisis Dyslipidemia Hypertension Diabetic peripheral neuropathy associated with type 2 diabetes mellitus Peripheral neuropathy Arsenic poisoning Type 2 diabetes mellitus Surgical History No significant past surgical history Family History Other Diabetes Social History Smoking and tobacco/nicotine status: unknown if used tobacco/nicotine Alcohol intake: current Alcohol intake frequency: few times a week Substance/Drug Use: never Lives independently: Yes Marital status: Single Current occupational status: previously employed Previous occupational history: Laid off, is supposed to start work again next year. Physical Exam 2 Const: COMMON NORMALS: no acute distress, average body habitus, patient oriented x3, no limitations, healthy appearing, alert and well nourished HENMT: COMMON NORMALS: normocephalic, atraumatic, hearing grossly normal bilaterally, external ears normal, Normal external nose present, moist oral mucous membranes and oropharynx normal HEAD & SCALP: normocephalic and atraumatic NOSE: Normal external nose present EXTERNAL EAR: Yes external ears normal Neck/C-Spine: COMMON NORMALS: full ROM, no lymphadenopathy, supple, no meningeal signs, no JVD and Thyroid normal THYROID: Thyroid normal Chest: COMMONS NORMALS: normal inspection of the chest and normal palpation of entire chest wall Resp: COMMON NORMALS: normal respiratory effort, No retractions, No use of accessory muscles and clear to auscultation bilaterally AUSCULTATION: clear to auscultation bilaterally Cardio: COMMON NORMALS: no JVD, regular rate, regular rhythm, S1 normal heart sound present, S2 normal heart sound present, No gallops present (Cardio), No clicks present (Cardio), No murmurs present (Cardio) and No rub (Cardio) R ATE: regular rate RHYTHM: regular rhythm HEART SOUNDS: S1 normal heart sound present and S2 normal heart sound present GI: COMMON NORMALS: Normal to inspection, nondistended, normoactive bowel sounds present, Soft to palpation, non-tender, No hepatosplenomegaly present and no masses PALPATION: Yes Soft to palpation and Yes No hepatosplenomegaly present Neuro: COMMON NORMALS: patient oriented x3 SENSORIUM/ORIENTATION: Yes alert MENINGEAL SIGNS: Yes no meningeal signs Course 2 Vital Signs: Vital signs: Vital Signs Temperature 97.8 F 10/12/24 16:11 Pulse Rate 83 10/12/24 18:59 Respiratory Rate 14 10/12/24 18:59 Blood Pressure 133/76 10/12/24 18:59 Pulse Oximetry 98 10/12/24 18:59 Oxygen Delivery Me thod Nasal Cannula 10/12/24 18:59 MDM - General Adult Medical Decision Making Lab work was obtained which revealed patient is anemic with hemoglobin 10.9, KIRSTIN with a BUN/creatinine of 39 1.9, otherwise unremarkable. Patient was given 1 L normal saline, patient did have an episode of chest pain regard EKGs troponins. Patient Toradol and nitro. The pain resolved before the morphine was given. This is right-sided reproducible chest wall type pain. Patient will be discharged home Medical Records I reviewed the patient's medical records. Lab Data I reviewed the patient's lab results. 10/12/24 16:48 10/12/24 16:48 Radiology Impressions Chest X-Ray 10/12/24 18:48 IMPRESSION: Low lung volumes with mild nonspecific basilar peribronchial thickening without focal consolidation or other significant plain radiographic abnormality. Laboratory Results WBC 7.61 10^3/uL (3.29-11.43) 10/12/24 16:48 RBC 3.84 10^6/uL (3.85-5.65) L 10/12/24 16:48 Hgb 10.90 g/dL (11.27-16.99) L 10/12/24 16:48 Hct 34.2 % (37-53) L 10/12/24 16:48 MCV 89.1 fl (82-101) 10/12/24 16:48 MCH 28.4 pg (27-33) 10/12/24 16:48 MCHC 31.9 g/dL (30-55) 10/12/24 16:48 RDW 13.5 % (12.1-15.1) 10/12/24 16:48 Plt Count 253 10^3/cmm (157-399) 10/12/24 16:48 MPV 9.4 fL (7.4-10.4) 10/12/24 16:48 Neut % (Auto) 74.8 % 10/12/24 16:48 Lymph % (Auto) 13.1 % 10/12/24 16:48 [place] % (Auto) 7.8 % 10/12/24 16:48 Eos % (Auto) 3.4 % 10/12/24 16:48 Baso % (Auto) 0.8 % 10/12/24 16:48 Neut # (Auto) 5.69 10^3/uL (1.8-7.7) 10/12/24 16:48 Lymph # (Auto) 1.0 10^3/uL (0.8-4.8) 10/12/24 16:48 [place] # (Auto) 0.6 10^3/uL (0.2-0.9) 10/12/24 16:48 Eos # (Auto) 0.3 10^3/uL (0.0-0.8) 10/12/24 16:48 Baso # (Auto) 0.1 10^3/uL (0.0-0.1) 10/12/24 16:48 Nucleated RBC % (auto) 0 % 10/12/24 16:48 Nucleated RBCs # 0.0 /100WBC 10/12/24 16:48 Sodium 138 mmol/L (136-145) 10/12/24 16:48 Potassium 4.3 mmol/L (3.5-5.1) 10/12/24 16:48 Chloride 106 mmol/L (98-107) 10/12/24 16:48 Carbon Dioxide 25 mmol/L (22-29) 10/12/24 16:48 Anion Gap 11.3 (5-19) 10/12/24 16:48 BUN 39 mg/dL (8-23) H 10/12/24 16:48 Creatinine 1.9 mg/dL (0.7-1.2) H 10/12/24 16:48 GFR Calculation 36.3 mL/min (90-130) L 10/12/24 16:48 Glucose 113 mg/dL (65-115) 10/12/24 16:48 Calculated Osmolality 296 mOsm/kg (285-295) H 10/12/24 16:48 Calcium 8.2 mg/dL (8.5-10.5) L 10/12/24 16:48 Total Bilirubin 0.2 mg/dL (0.15-1.2) 10/12/24 16:48 AST 19 U/L (0-40) 10/12/24 16:48 ALT 17 U/L (0-41) 10/12/24 16:48 Alkaline Phosphatase 90 U/L (40-130) 10/12/24 16:48 Troponin T Baseline 109 ng/L (0-15) H* 10/12/24 16:48 Troponin T 120 Minute 107 ng/L (0-15) H 10/12/24 18:55 Delta Troponin T -2 ABS# (0-10) L 10/12/24 18:55 Total Protein 5.7 g/dL (6.6-8.7) L 10/12/24 16:48 Albumin 3.2 g/dL (3.5-5.2) L 10/12/24 16:48 Globulin 2.5 g/dL (1.3-4.6) 10/12/24 16:48 All radiology interpretation(s) finalized by discharge Discharge Plan Discharge Patient Disposition: Home Clinical Impression: Acute kidney injury, Atypical chest pain Hypertension Qualifiers: Hypertension type: unspecified Qualified Code(s): I10 - Essential (primary) hypertension Condition: Stable Prescriptions: New clonidine HCl 0.1 mg tablet 0.1 mg PO QID PRN (Reason: Blood pressure greater than 160/90) Qty: 30 0RF No Action lisinopril 20 mg tablet 20 mg PO .morning Qty: 90 3RF lisinopril 40 mg tablet 40 mg PO .evening Qty: 90 2RF aspirin 81 mg tablet,delayed release (DR/EC) 81 mg PO DAILY Qty: 30 0RF atorvastatin 40 mg tablet 40 mg PO DAILY Qty: 30 0RF Discharge Orders: Discharge ED (Routine); Ordered 10/12/24 Ordered By: Robert Bustillo Patient Instructions: Hypertension, Chest Pain (ED), Acute Kidney Injury (DC) Activity Restrictions/Additional Instructions: You have been prescribed clonidine to take when your blood pressure is greater than 160/90. Please keep a blood pressure log and take it with you to your next family practice appointment to review your log and possibly adjust your medicines. Thank you for choosing [facility] for your healthcare needs today. Please realize that you were seen in the emergency department and that we are providing you with an emergency medical screening exam and this may not be a complete and all exclusive of all testing and/or medical workup we may need to determine your element or severity of your illness. It is very important that you follow-up as instructed with your primary care provider or specialist for the additional evaluation and to discuss your medical treatment plan. You may return to the emergency department should you have concerns or if your condition changes or worsens in any way. Print Language: Monegasque Coding Level of Care Code ED Dental Prosthetist for Luiza Wallace
[2024-10-12 17:16] LABS: Alanine Aminotransferase 17 U/L (0-41); Albumin Level 3.2 g/dL (3.5-5.2); Alkaline Phosphatase 90 U/L (40-130); Anion Gap 11.3 (5-19); Aspartate Amino Transferase 19 U/L (0-40); Blood Urea Nitrogen 39 mg/dL (8-23); Calcium 8.2 mg/dL (8.5-10.5); Carbon Dioxide 25 mmol/L (22-29); Chloride 106 mmol/L (98-107); Creatinine Clr Calc Pharmacy 41.2531; Globulin 2.5 g/dL (1.3-4.6); Glomerular Filtration Rate 36.3 mL/min (90-130); Glucose 113 mg/dL (65-115); Osmolality Calculated 296 mOsm/kg (285-295); Potassium 4.3 mmol/L (3.5-5.1); Sodium 138 mmol/L (136-145); Total Bilirubin 0.2 mg/dL (0.15-1.2); Total Protein 5.7 g/dL (6.6-8.7)
[2024-10-12] MEDS: hyDRALAzine 20 mg/mL INJ 1 mL 10 MG IVP (17:25)
[2024-10-12] MEDS: sodium chloride 0.9% 1,000 ML 999 ML IV (18:12)
--- NOTE | 2024-10-12 18:34 | ECG_ITS ---
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 Measurements Intervals [place] Rate: 80 P: 61 WI: 281 QRS: -47 QRSD: 113 T: 124 QT: 383 QTc: 444 Interpretive Statements SINUS RHYTHM WITH FIRST DEGREE AV BLOCK INCOMPLETE RIGHT BUNDLE BRANCH BLOCK [90+ ms QRS DURATION, TERMINAL R IN V1/V2, 40+ ms S IN I/aVL/V4/V5/V6] LEFT ANTERIOR FASCICULAR BLOCK [QRS AXIS <= -45, QR IN I, RS IN II] POSSIBLE ANTERIOR MYOCARDIAL INFARCTION , PROBABLY OLD [30 ms Q WAVE IN V3/V4, OR R < 0.2 mV IN V4] MODERATE T-WAVE ABNORMALITY, CONSIDER LATERAL ISCHEMIA [-0.1+ mV T-WAVE IN I/aVL/V5/V6] Compared to ECG 08/29/2023 16:16:38 Left anterior fascicular block now present Myocardial infarct finding now present T-wave abnormality now present Electronically Signed On 10-13-2024 18:15:38 CDT by Steffen Lentz M.D. [id number]
[2024-10-12] MEDS: nitroglycerin 0.4 mg sublingual Tablet SUBLINGUAL (18:43)
--- NOTE | 2024-10-12 18:48 | XRR_ITS ---
PROCEDURE INFORMATION: Exam: XR Chest Exam date and time: 10/12/2024 6:49 PM Age: 59 years old Clinical indication: Chest pressure; C/O chest pain TECHNIQUE: Imaging protocol: Radiologic exam of the chest. Views: 1 view. COMPARISON: CT angio headneck* [id number] 06/24/2022 9:40 AM FINDINGS: Lungs: Relatively low lung volumes . Mild nonspecific bibasilar peribronchial thickening without focal consolidation. Pleural spaces: Unremarkable. No pleural effusion. No pneumothorax. Heart/Mediastinum: Unremarkable. No cardiomegaly. Bones/joints: Unremarkable. XR/XR chest 1V portable [id number] IMPRESSION: Low lung volumes with mild nonspecific basilar peribronchial thickening without focal consolidation or other significant plain radiographic abnormality.
[2024-10-12] MEDS: ketorolac 30 mg/mL INJ IVP (18:51)
[2024-10-12 19:21] LABS: Troponin(5th) Baseline 109 ng/L (0-15)
[2024-10-12 19:22] LABS: Troponin 5 2HR 107 ng/L (0-15); Troponin 5 2HR Delta -2 ABS# (0-10)
--- NOTE | 2024-10-12 20:38 | ECG_ITS ---
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1965 Requested By: Robert Bustillo Order Number: [id number] Reading MD: STEPHON JUAN Measurements Intervals Gallagher Rate: 88 P: 70 OH: 269 QRS: -59 QRSD: 111 T: 120 QT: 385 QTc: 466 Interpretive Statements SINUS RHYTHM WITH FIRST DEGREE AV BLOCK LEFT ANTERIOR FASCICULAR BLOCK [QRS AXIS <= -45, QR IN I, RS IN II] POSSIBLE ANTERIOR MYOCARDIAL INFARCTION , OF INDETERMINATE AGE [30 ms Q WAVE IN V3/V4, OR R < 0.2 mV IN V4] MODERATE T-WAVE ABNORMALITY, CONSIDER LATERAL ISCHEMIA [-0.1+ mV T-WAVE IN I/aVL/V5/V6] Compared to ECG 10/12/2024 18:34:55 Incomplete right bundle-branch block no longer present Myocardial infarct finding still present T-wave abnormality still present Possible ischemia still present Electronically Signed On 10-14-2024 22:04:38 CDT by STEPHON JUAN [email or web address]
== END 2024-10-12 21:13 | disposition home or self-care (01) ==
PROVIDERS: Emergency Provider Emergency Medicine
DX: N17.9 Acute kidney failure, unspecified (principal); I10 Essential (primary) hypertension; R07.89 Other chest pain; Z79.82 Long term (current) use of aspirin; E78.5 Hyperlipidemia, unspecified; E11.42 Type 2 diabetes mellitus with diabetic polyneuropathy
CPT/HCPCS: 36415; 71045; 80053; 84484; 85025; 93005; 96361; 96374; 96375; 99285; J0360; J1885; J7030; J9999

== ENCOUNTER → 2024-10-19 08:51 | Outpatient (BNVA) | payer MEDICAID, SELFPAY | PROVIDERS: Visit Provider Nurse Practitioner Family | DX: I10 Essential (primary) hypertension (principal); E11.65 Type 2 diabetes mellitus with hyperglycemia; Z79.899 Other long term (current) drug therapy; D64.9 Anemia, unspecified | CPT/HCPCS: 80053; 81003; 82570; 82728; 83036; 83550; 84156; 84443; 85025 ==

== ENCOUNTER → 2025-05-13 16:31 | Outpatient (BNVA) | payer MEDICAID, SELFPAY | PROVIDERS: PCP Family Medicine; Visit Provider Nurse Practitioner Family | DX: S99.922A Unspecified injury of left foot, initial encounter (principal); X58.XXXA Exposure to other specified factors, initial encounter | CPT/HCPCS: 73630 ==

== ENCOUNTER → 2025-06-19 15:35 | Outpatient (BNVA) | payer MEDICAID, SELFPAY | PROVIDERS: PCP Family Medicine; Referring Provider Nurse Practitioner Family; Visit Provider Internal Medicine Cardiovascular Disease | DX: R07.9 Chest pain, unspecified (principal); I16.9 Hypertensive crisis, unspecified; E78.5 Hyperlipidemia, unspecified; I44.0 Atrioventricular block, first degree; I45.10 Unspecified right bundle-branch block; I44.4 Left anterior fascicular block; R94.31 Abnormal electrocardiogram [ECG] [EKG] | CPT/HCPCS: 36415; 80048; 80061; 93005 ==

== ENCOUNTER → 2025-06-25 11:23 | Outpatient (BNVA) | payer MEDICAID, SELFPAY | PROVIDERS: PCP Family Medicine; Visit Provider Nurse Practitioner Family | DX: I10 Essential (primary) hypertension (principal); E78.5 Hyperlipidemia, unspecified; E11.65 Type 2 diabetes mellitus with hyperglycemia; D50.9 Iron deficiency anemia, unspecified; Z79.899 Other long term (current) drug therapy | CPT/HCPCS: 80053; 80061; 81003; 82306; 82570; 82607; 82728; 83036; 83550; 83735; 84100; 84156; 84443; 85025 ==